=== PATIENT | female | born 1950 | race Caucasian/White ===

== ENCOUNTER 2018-05-09 11:22 | Inpatient (IN) | payer MEDICARE, BC ==
[~2018-05-09] VITALS: Ht 152.4 cm; Wt 113.9 kg
[~2018-05-09 11:22] MED LIST: ALBU8.5H6 IH; ALPR0.25 PO; ASPI-482 PO; BENZ-8 PO; FLUD0.1T PO; GABA-585 PO; GLYB2.5T2 PO; HYDR-2769 PO; HYDR1TAB13 PO; LEVO500T59 PO; LISI-338 PO; NITR0.4T22 SL; NYST15CR TP; OMEP20CA5 PO; POTA10TA31 PO; PROM25TA10 PO; SIMV40TA PO; TRAZ150T49 PO; blood pressure med
--- NOTE | 2018-05-09 12:06 | EKG ---
[facility] [address] [place] [address] Test Date: 2018-05-09 Test Time: 12:02:34 Pat Name: ASHLEY REYES Department: Room: Gender: F [employer]ing [employer]ner: : [id number] Requested By: LONNIE TOBIN Order Number: [id number] Reading MD: Steve Robb MD Measurements Intervals [place] Rate: 70 P: 70 [place]: 142 QRS: 1 QRSD: 80 T: 36 QT: 394 QTc: 428 Interpretive Statements SINUS RHYTHM Electronically Signed On 05-18-2018 9:28:10 CDT by Steve Robb MD
[2018-05-09 12:15] LABS: BASO % 1 % (0-3); EOS # 0.1 x10^3/uL (0.0-0.7); EOS % 1 % (0-3); HEMATOCRIT 47.3 % (36.0-47.0); HEMOGLOBIN 15.6 g/dL (12.0-15.5); LYMPH # 1.9 x10^3/uL (1.0-4.8); LYMPH % 23 % (24-48); MEAN CORPUSCULAR HEMOGLOBIN 28 pg (25-35); MEAN CORPUSCULAR HGB CONC 33 g/dL (31-37); MEAN CORPUSCULAR VOLUME 86 fL (79-100); MONO # 0.7 x10^3/uL (0.0-1.1); MONO % 8 % (0-9); NEUT # 5.3 x10^3uL (1.8-7.7); NEUT % 67 % (31-73); PLATELET COUNT 228 x10^3/uL (140-400); RED BLOOD COUNT 5.49 x10^6/uL (3.50-5.40); RED CELL DISTRIBUTION WIDTH 14.1 % (11.5-14.5)
[2018-05-09] MEDS ORDERED: methylPREDNISolone SOD SUCC PF 125 MG/2 ML VIAL. IV ONE (12:15)
[2018-05-09] MEDS ORDERED: IPRATRPIUM/ALBUTEROL 0.5/2.5MG 3 ML NEBU. NEB ONE (12:15)
[2018-05-09] MEDS ORDERED: NICOTINE 21MG PATCH. TD STA (12:21)
[2018-05-09 12:28] LABS: CREATININE 0.9 mg/dL (0.6-1.0); GFR 62.5; POTASSIUM 3.9 mmol/L (3.5-5.1)
[2018-05-09 12:30] LABS: INFLUENZA A PATIENT NEGATIVE (NEGATIVE); INFLUENZA B PATIENT NEGATIVE (NEGATIVE)
[2018-05-09] MEDS ORDERED: ALPRAZolam 0.5 MG TABLET PO ONE (12:30)
[2018-05-09] MEDS ORDERED: fentaNYL PF VIAL 100 MCG/2 ML VIAL IV ONE ×2 (12:30→14:30)
--- NOTE | 2018-05-09 12:32 | RAD ---
Single view chest dated 05/09/2018: Comparison made to 07/08/2015. Clinical Indication: Shortness of breath and chest pain for 2 weeks. Findings: Single upright portable exam of the chest was performed. Heart size and mediastinal contours are within normal limits given technique. The lungs are clear without evidence of focal consolidation. Vascular interstitium is within normal limits. Impression:: Negative portable chest. Electronically signed by: Vicente Ling MD (05/09/2018 12:29 PM) [id number]
[2018-05-09 12:34] LABS: ALBUMIN 3.2 g/dL (3.4-5.0); ALBUMIN/GLOBULIN RATIO 0.8 (1.0-1.7); MAGNESIUM 1.8 mg/dL (1.8-2.4); TOTAL BILIRUBIN 0.3 mg/dL (0.2-1.0); TOTAL PROTEIN 7.3 g/dL (6.4-8.2)
[2018-05-09 14:00] LABS: BILIRUBIN,URINE NEGATIVE (NEG); CLARITY,URINE CLEAR; COLOR,URINE YELLOW; NITRITE,URINE NEGATIVE (NEG); PH,URINE 6.5; PROTEIN,URINE NEGATIVE (NEG-TRACE)
[2018-05-09 14:10] LABS: BACTERIA,URINE MODERATE /HPF (0-FEW); RBC,URINE OCC /HPF (0-2); SQUAMOUS EPITHELIAL CELL,UR MANY /LPF; WBC,URINE RARE /HPF (0-4)
[2018-05-09 14:23] LABS: BARBITURATES NEG (NEG); BENZODIAZEPINES POS (NEG); CANNABINOIDS NEG (NEG); COCAINE NEG (NEG); METHADONE NEG (NEG); OPIATES NEG (NEG); PHENCYCLIDINE NEG (NEG)
[2018-05-09 14:34] LABS: AMPHETAMINE/METHAMPHETAMINE NEG (NEG)
--- NOTE | 2018-05-09 14:44 | RAD ---
EXAM: Head CT without contrast. HISTORY: Syncope. Dizziness. TECHNIQUE: Computed tomographic images of the head were obtained without contrast. *One or more of the following individualized dose reduction techniques were utilized for this examination: 1. Automated exposure control. 2. Adjustment of the mA and/or kV according to patient size. 3. Use of iterative reconstruction technique. COMPARISON: 04/26/2013. FINDINGS: There is no acute or subacute extra-axial or intraparenchymal hemorrhage. There is no mass effect or midline shift. There is no hydrocephalus. There are areas of decreased attenuation within the cerebral white matter, nonspecific and likely related to chronic small vessel disease. The visualized portions of the orbits, paranasal sinuses and mastoid air cells are unremarkable. No suspicious calvarial lesion is seen. IMPRESSION: No acute intracranial findings. Note is made that MRI is more sensitive for acute infarction. Electronically signed by: Cata Laguna MD (05/09/2018 2:42 PM) [facility]
--- NOTE | 2018-05-09 15:21 | PHYS DOC ---
Past Medical History Past Medical History: Anxiety, Asthma, Cancer, CHF, COPD, Hypertension, Pancreatitis Additional Past Medical Histor: CHRONIC BACK PAIN Past Surgical History: Appendectomy, Cancer Surgery, Cholecystectomy, Hysterectomy Additional Past Surgical Histo: lumpectomy right side, LEG AND ARM Additional Information: 1 PPD Alcohol Use: None Drug Use: None Adult General Chief Complaint Chief Complaint: HYPERTENSION HPI HPI Patient is a 68 year old female with history of hypertension, COPD, currently a nonsmoker, CHF, anxiety, who presents to the ED stating her PCP Dr. Kapoor from [facility] tender to be admitted. Patient states she's had shortness of breath and coughing for "a while". She also states she's had multiple syncope episodes for "a while". Patient states she went to be seen by the PCP, she stated this send her to the ED to be evaluated and admitted. Patient denies any fever. Denies any chest pain. She states she uses oxygen at home 2 L. Review of Systems Review of Systems Constitutional: Denies fever or chills [] Eyes: Denies change in visual acuity, redness, or eye pain [] HENT: Denies nasal congestion or sore throat [] Respiratory: Reports cough and shortness of breath Cardiovascular: No additional information not addressed in HPI [] GI: Denies abdominal pain, nausea, vomiting, bloody stools or diarrhea [] : Denies dysuria or hematuria [] Musculoskeletal: Denies back pain or joint pain [] Integument: Denies rash or skin lesions [] Neurologic: Reports syncope episodes. Denies headache, focal weakness or sensory changes [] All other systems were reviewed and found to be within normal limits, except as documented in this note. Current Medications Current Medications Current Medications Medications (Trade) Dose Ordered Sig/[facility] Start Time Stop Time Status Last Admin Dose Admin Albuterol/ Ipratropium (Duoneb) 3 ml 1X ONCE 05/09/18 12:15 05/09/18 12:16 DC 05/09/18 12:14 3 ML Alprazolam (Xanax) 0.5 mg 1X ONCE 05/09/18 12:30 05/09/18 12:31 DC 05/09/18 12:49 0.5 MG Fentanyl Citrate (Fentanyl 2ml Vial) 50 mcg 1X ONCE 05/09/18 14:30 05/09/18 14:33 DC 05/09/18 14:40 50 MCG Methylprednisolone Sodium Succinate (SOLU-Medrol 125MG VIAL) 125 mg 1X ONCE 05/09/18 12:15 05/09/18 12:16 DC 05/09/18 12:16 125 MG Nicotine (Nicoderm Cq 21mg) 1 patch 1X STAT 05/09/18 12:21 05/09/18 12:24 DC 05/09/18 12:50 1 PATCH Allergies Allergies Allergies Coded Allergies Type Severity Reaction Last Updated Verified codeine Allergy Intermediate hives 07/10/15 Yes Physical Exam Physical Exam Constitutional: Well developed, well nourished, no acute distress, non-toxic appearance. [] HENT: Normocephalic, atraumatic, bilateral external ears normal, oropharynx moist, no oral exudates, nose normal. [] Eyes: PERRLA, EOMI, conjunctiva normal, no discharge. [] Neck: Normal range of motion, no tenderness, supple, no stridor. [] Cardiovascular:Heart rate regular rhythm, no murmur [] Lungs & Thorax: Wheezing throughout her lung bases, patient appears short of air. Abdomen: Bowel sounds normal, soft, no tenderness, no masses, no pulsatile masses. [] Skin: Warm, dry, no erythema, no rash. [] Back: No tenderness, no CVA tenderness. [] Extremities: No tenderness, no cyanosis, no clubbing, ROM intact, no edema. [] Neurologic: Alert and oriented X 3, normal motor function, normal sensory function, no focal deficits noted. Cranial nerves II through XII intact Psychologic: Affect normal, judgement normal, mood normal. [] Current Patient Data Vital Signs Vital Signs Date Time Temp Pulse Resp B/P (MAP) Pulse Ox O2 Delivery O2 Flow Rate FiO2 05/09/18 14:40 24 05/09/18 14:34 78 05/09/18 13:11 95 05/09/18 12:16 Nasal Cannula 2.0 05/09/18 12:07 98.2 148/72 (97) 98.2 Lab Values Laboratory Tests Test 05/09/18 11:56 05/09/18 13:36 White Blood Count 8.0 x10^3/uL (4.0-11.0) Red Blood Count 5.49 x10^6/uL (3.50-5.40) H Hemoglobin 15.6 g/dL (12.0-15.5) H Hematocrit 47.3 % (36.0-47.0) H Mean Corpuscular Volume 86 fL (79-100) Mean Corpuscular Hemoglobin 28 pg (25-35) Mean Corpuscular Hemoglobin Concent 33 g/dL (31-37) Red Cell Distribution Width 14.1 % (11.5-14.5) Platelet Count 228 x10^3/uL (140-400) Neutrophils (%) (Auto) 67 % (31-73) Lymphocytes (%) (Auto) 23 % (24-48) L Monocytes (%) (Auto) 8 % (0-9) Eosinophils (%) (Auto) 1 % (0-3) Basophils (%) (Auto) 1 % (0-3) Neutrophils # (Auto) 5.3 x10^3uL (1.8-7.7) Lymphocytes # (Auto) 1.9 x10^3/uL (1.0-4.8) Monocytes # (Auto) 0.7 x10^3/uL (0.0-1.1) Eosinophils # (Auto) 0.1 x10^3/uL (0.0-0.7) Basophils # (Auto) 0.0 x10^3/uL (0.0-0.2) Prothrombin Time 12.0 SEC (11.7-14.0) Prothrombin Time INR 0.9 (0.8-1.1) Sodium Level 139 mmol/L (136-145) Potassium Level 3.9 mmol/L (3.5-5.1) Chloride Level 99 mmol/L (98-107) Carbon Dioxide Level 35 mmol/L (21-32) H Anion Gap 5 (6-14) L Blood Urea Nitrogen 6 mg/dL (7-20) L Creatinine 0.9 mg/dL (0.6-1.0) Estimated GFR (Cockcroft-Gault) 62.5 BUN/Creatinine Ratio 7 (6-20) Glucose Level 105 mg/dL (70-99) H Calcium Level 9.0 mg/dL (8.5-10.1) Magnesium Level 1.8 mg/dL (1.8-2.4) Total Bilirubin 0.3 mg/dL (0.2-1.0) Aspartate Amino Transferase (AST) 23 U/L (15-37) Alanine Aminotransferase (ALT) 19 U/L (14-59) Alkaline Phosphatase 89 U/L (46-116) Creatine Kinase 282 U/L (26-192) H Creatine Kinase MB (Mass) 8.1 ng/mL (0.0-3.6) H Creatine Kinase MB Relative Index 2.9 % (0-4) Troponin I Quantitative < 0.017 ng/mL (0.000-0.055) KA-Rku-U-Type Natriuretic Peptide 140 pg/mL (0-124) H Total Protein 7.3 g/dL (6.4-8.2) Albumin 3.2 g/dL (3.4-5.0) L Albumin/Globulin Ratio 0.8 (1.0-1.7) L Thyroid Stimulating Hormone (TSH) 2.305 uIU/mL (0.358-3.74) Influenza Type A Antigen Negative (NEGATIVE) Influenza Type B Antigen Negative (NEGATIVE) Urine Collection Type Void Urine Color Yellow Urine Clarity Clear Urine pH 6.5 Urine Specific [place] 1.015 Urine Protein Negative mg/dL (NEG-TRACE) Urine Glucose (UA) Negative mg/dL (NEG) Urine Ketones (Stick) Negative mg/dL (NEG) Urine Blood Negative (NEG) Urine Nitrite Negative (NEG) Urine Bilirubin Negative (NEG) Urine Urobilinogen Dipstick 1.0 mg/dL (0.2 mg/dL) Urine Leukocyte Esterase Trace (NEG) Urine RBC Occ /HPF (0-2) Urine WBC Rare /HPF (0-4) Urine Squamous Epithelial Cells Many /LPF Urine Bacteria Moderate /HPF (0-FEW) Urine Opiates Screen Neg (NEG) Urine Methadone Screen Neg (NEG) Urine Barbiturates Neg (NEG) Urine Phencyclidine Screen Neg (NEG) Urine Amphetamine/Methamphetamine Neg (NEG) Urine Benzodiazepines Screen Pos (NEG) Urine Cocaine Screen Neg (NEG) Urine Cannabinoids Screen Neg (NEG) Urine Ethyl Alcohol Neg (NEG) Laboratory Tests 05/09/18 11:56 Laboratory Tests 05/09/18 11:56 EKG EKG 12:02pm interpreted by Dr. Amador sinus rhythm HR 70 no STEMI[] Radiology/Procedures Radiology/Procedures [] Course & Med Decision Making Course & Med Decision Making Pertinent Labs and Imaging studies reviewed. (See chart for details) This is a 68-year-old female patient presented to the ED today complaining of cough and shortness of breath for a while. Also complaining of multiple syncope episodes. Patient was sent to the ED to be admitted. Labs are negative for any acute findings, chest xray is negative, negative for influenza A and B, she was given a DuoNeb treatment in the ED and solumedrol. She is feeling slightly better but she states she is not back to her baseline, Ct of the head is negative. Consulted with Dr. Haque who accepted patient for admission. Dragon Disclaimer Dragon Disclaimer This electronic medical record was generated, in whole or in part, using a voice recognition dictation system. Departure Departure Impression: Primary Impression: COPD exacerbation Additional Impression: Syncope Referrals: IVETH KAPOOR (PCP) Problem Qualifiers Additional Impression: Syncope Syncope type: unspecified Qualified Codes: R55 - Syncope and collapse LONNIE TOBIN APRN May 09, 2018 15:21
[2018-05-09] MEDS ORDERED: ONDANSETRON PF 4 MG/2 ML VIAL. IV PRN (15:30)
[2018-05-09] MEDS ORDERED: fentaNYL PF VIAL 100 MCG/2 ML VIAL IV PRN (15:30)
[2018-05-09] MEDS: IPRATRPIUM/ALBUTEROL 0.5/2.5MG 3 ML NEBU. NEB SCH ×2 (16:00→19:21)
[2018-05-09 16:30] VITALS: BP 170/63
[2018-05-09 19:00] VITALS: BP 172/65
--- NOTE | 2018-05-09 20:33 | PDOC1 ---
History and Physical Date of Admission Date of Admission DATE: 05/09/18 TIME: 20:33 Identification/Chief Complaint Chief Complaint seen in er , history of hypertension, COPD, currently a nonsmoker, CHF, anxiety, who presents to the ED stating her PCP Dr. Kapoor from [facility] told her to be admitted. Patient states she's had shortness of breath and coughing for "a while". She also states she's had multiple syncope episodes for "a while "./falls Patient states she went to be seen by the PCP, she stated this send her to the ED to be evaluated and admitted. has hx hypercapnea/ obesity/ hypoxic resp failure was in moderate distress in ER TONIGHT Past Medical History Past Medical History Past Medical History Past Medical History Past Medical History: Anxiety, Asthma, Cancer, CHF, COPD, Hypertension, Pancreatitis Additional Past Medical Histor: CHRONIC BACK PAIN Past Surgical History: Appendectomy, Cancer Surgery, Cholecystectomy, Hysterectomy Additional Past Surgical Histo: lumpectomy right side, LEG AND ARM Additional Information: 1 PPD Alcohol Use: None Drug Use: None Past Medical History Cardiovascular: HTN Pulmonary: Bronchitis, COPD Psych: No pertinent hx, Anxiety Musculoskeletal: low back pain Past Surgical History Past Surgical History: Appendectomy, Cholecystectomy, , Hysterectomy Family History Family History: Diabetes, Hypertension Social History Smoke: 2 packs per day ALCOHOL: none Cardiovascular: HTN Pulmonary: Bronchitis, COPD Psych: No pertinent hx, Anxiety Musculoskeletal: low back pain Past Surgical History Past Surgical History: Appendectomy, Cholecystectomy, , Hysterectomy Family History Family History: Chronic Bronchitis, Diabetes, Hypertension Social History Smoke: <1 pack per day ALCOHOL: none Drugs: None Current Problem List Problem List Problems Medical Problems: (1) COPD exacerbation Status: Acute (2) Syncope Status: Acute Current Medications Current Medications Current Medications Albuterol/ Ipratropium (Duoneb) 3 ml 1X ONCE NEB Last administered on at 12:14; Start 05/09/18 at 12:15; Stop 05/09/18 at 12:16; Status DC Methylprednisolone Sodium Succinate (SOLU-Medrol 125MG VIAL) 125 mg 1X ONCE IV Last administered on 05/09/18at 12:16; Start 05/09/18 at 12:15; Stop 05/09/18 at 12:16; Status DC Fentanyl Citrate (Fentanyl 2ml Vial) 50 mcg 1X ONCE IV Last administered on 02/15at 12:48; Start 05/09/18 at 12:30; Stop 05/09/18 at 12:31; Status DC Alprazolam (Xanax) 0.5 mg 1X ONCE PO Last administered on 05/09/18at 12:49; Start 05/09/18 at 12:30; Stop 05/09/18 at 12:31; Status DC Nicotine (Nicoderm Cq 21mg) 1 patch 1X STAT TD Last administered on 05/09/18at 12:50; Start 05/09/18 at 12:21; Stop 05/09/18 at 12:24; Status DC Fentanyl Citrate (Fentanyl 2ml Vial) 50 mcg 1X ONCE IV Last administered on 02/15at 14:40; Start 05/09/18 at 14:30; Stop 05/09/18 at 14:33; Status DC Ondansetron HCl (Zofran) 4 mg PRN Q8HRS PRN IV NAUSEA/VOMITING; Start 05/09/18 at 15:30; Stop 05/10/18 at 15:29 Fentanyl Citrate (Fentanyl 2ml Vial) 50 mcg PRN Q1HR PRN IV PAIN; Start at 15:30; Stop 05/10/18 at 15:29 Albuterol/ Ipratropium (Duoneb) 3 ml RTQID NEB Last administered on 05/09/18at 19:21; Start 05/09/18 at 16:00; Stop 05/10/18 at 15:59 Methylprednisolone Sodium Succinate (SOLU-Medrol 40MG VIAL) 40 mg Q8HRS IV ; Start 05/09/18 at 22:00 Active Scripts Active Levaquin (Levofloxacin) 500 Mg Tablet 500 Mg PO DAILY06 Fludrocortisone Acetate 0.1 Mg Tablet 0.1 Mg PO DAILY Benzonatate 100 Mg Capsule 100 Mg PO [id number] Hydrocodone-Apap 10-325 (Hydrocodone Bit/Acetaminophen) 1 Each Tablet 1 Tab PO PRN Q6HRS PRN Reported NITROGLYCERIN SubLingual (Nitroglycerin) 0.4 Mg Tab.subl 0.4 Mg SL PRN Q5MIN PRN Promethazine Hcl 25 Mg Tablet 1 Tab PO PRN Q6HRS Nystatin 15 Gm Cream..g. 1 Deo TP BID PRN Aspir 81 (Aspirin) 81 Mg Tablet.dr 1 Tab PO DAILY Lisinopril 5 Mg Tablet 1 Tab PO DAILY Zocor (Simvastatin) 40 Mg Tablet 40 Mg PO HS Prilosec (Omeprazole) 20 Mg Capsule.dr 20 Mg PO DAILY Glyburide 2.5 Mg Tablet 2.5 Mg PO DAILY Trazodone Hcl 150 Mg Tablet 150 Mg PO QHS Albuterol Sulfate Hfa Inhaler (Albuterol Sulfate) 8.5 Gm Hfa.aer.ad 8.5 Gm IH BID Potassium Chloride 10 Meq Tab.er.prt 10 Meq PO Xanax (Alprazolam) 0.25 Mg Tablet 1 Mg PO QID Allergies Allergies: Coded Allergies: codeine (Verified Allergy, Intermediate, hives, 07/10/15) ROS Review of System Review of Systems Review of Systems Constitutional: Denies fever or chills [] Eyes: Denies change in visual acuity, redness, or eye pain [] HENT: Denies nasal congestion or sore throat [] Respiratory: Reports cough and MODERATE shortness of breath Cardiovascular: No additional information not addressed in HPI [] GI: Denies abdominal pain, nausea, vomiting, bloody stools or diarrhea [] : Denies dysuria or hematuria [] Musculoskeletal: Denies back pain or joint pain [] Integument: Denies rash or skin lesions [] Neurologic: Reports syncope episodes. Denies headache, focal weakness or sensory changes [] 14 PT systems were reviewed and found to be within normal limits, except as documented Vitals Vitals Vital Signs Date Time Temp Pulse Resp B/P (MAP) Pulse Ox O2 Delivery O2 Flow Rate FiO2 05/09/18 19:23 96 Nasal Cannula 2.0 05/09/18 19:00 97.9 84 20 172/65 (100) 97.9 Labs Labs Laboratory Tests Test 05/09/18 11:56 05/09/18 13:36 White Blood Count 8.0 x10^3/uL (4.0-11.0) Red Blood Count 5.49 x10^6/uL (3.50-5.40) Hemoglobin 15.6 g/dL (12.0-15.5) Hematocrit 47.3 % (36.0-47.0) Mean Corpuscular Volume 86 fL (79-100) Mean Corpuscular Hemoglobin 28 pg (25-35) Mean Corpuscular Hemoglobin Concent 33 g/dL (31-37) Red Cell Distribution Width 14.1 % (11.5-14.5) Platelet Count 228 x10^3/uL (140-400) Neutrophils (%) (Auto) 67 % (31-73) Lymphocytes (%) (Auto) 23 % (24-48) Monocytes (%) (Auto) 8 % (0-9) Eosinophils (%) (Auto) 1 % (0-3) Basophils (%) (Auto) 1 % (0-3) Neutrophils # (Auto) 5.3 x10^3uL (1.8-7.7) Lymphocytes # (Auto) 1.9 x10^3/uL (1.0-4.8) Monocytes # (Auto) 0.7 x10^3/uL (0.0-1.1) Eosinophils # (Auto) 0.1 x10^3/uL (0.0-0.7) Basophils # (Auto) 0.0 x10^3/uL (0.0-0.2) Prothrombin Time 12.0 SEC (11.7-14.0) Prothromb Time International Ratio 0.9 (0.8-1.1) Sodium Level 139 mmol/L (136-145) Potassium Level 3.9 mmol/L (3.5-5.1) Chloride Level 99 mmol/L (98-107) Carbon Dioxide Level 35 mmol/L (21-32) Anion Gap 5 (6-14) Blood Urea Nitrogen 6 mg/dL (7-20) Creatinine 0.9 mg/dL (0.6-1.0) Estimated GFR (Cockcroft-Gault) 62.5 BUN/Creatinine Ratio 7 (6-20) Glucose Level 105 mg/dL (70-99) Calcium Level 9.0 mg/dL (8.5-10.1) Magnesium Level 1.8 mg/dL (1.8-2.4) Total Bilirubin 0.3 mg/dL (0.2-1.0) Aspartate Amino Transf (AST/SGOT) 23 U/L (15-37) Alanine Aminotransferase (ALT/SGPT) 19 U/L (14-59) Alkaline Phosphatase 89 U/L (46-116) Creatine Kinase 282 U/L (26-192) Creatine Kinase MB (Mass) 8.1 ng/mL (0.0-3.6) Creatine Kinase MB Relative Index 2.9 % (0-4) Troponin I Quantitative < 0.017 ng/mL (0.000-0.055) AD-Tlu-C-Type Natriuretic Peptide 140 pg/mL (0-124) Total Protein 7.3 g/dL (6.4-8.2) Albumin 3.2 g/dL (3.4-5.0) Albumin/Globulin Ratio 0.8 (1.0-1.7) Thyroid Stimulating Hormone (TSH) 2.305 uIU/mL (0.358-3.74) Influenza Type A Antigen Negative (NEGATIVE) Influenza Type B Antigen Negative (NEGATIVE) Urine Collection Type Void Urine Color Yellow Urine Clarity Clear Urine pH 6.5 Urine Specific [place] 1.015 Urine Protein Negative mg/dL (NEG-TRACE) Urine Glucose (UA) Negative mg/dL (NEG) Urine Ketones (Stick) Negative mg/dL (NEG) Urine Blood Negative (NEG) Urine Nitrite Negative (NEG) Urine Bilirubin Negative (NEG) Urine Urobilinogen Dipstick 1.0 mg/dL (0.2 mg/dL) Urine Leukocyte Esterase Trace (NEG) Urine RBC Occ /HPF (0-2) Urine WBC Rare /HPF (0-4) Urine Squamous Epithelial Cells Many /LPF Urine Bacteria Moderate /HPF (0-FEW) Urine Opiates Screen Neg (NEG) Urine Methadone Screen Neg (NEG) Urine Barbiturates Neg (NEG) Urine Phencyclidine Screen Neg (NEG) Urine Amphetamine/Methamphetamine Neg (NEG) Urine Benzodiazepines Screen Pos (NEG) Urine Cocaine Screen Neg (NEG) Urine Cannabinoids Screen Neg (NEG) Urine Ethyl Alcohol Neg (NEG) Laboratory Tests Test 05/09/18 11:56 05/09/18 13:36 White Blood Count 8.0 x10^3/uL (4.0-11.0) Red Blood Count 5.49 x10^6/uL (3.50-5.40) Hemoglobin 15.6 g/dL (12.0-15.5) Hematocrit 47.3 % (36.0-47.0) Mean Corpuscular Volume 86 fL (79-100) Mean Corpuscular Hemoglobin 28 pg (25-35) Mean Corpuscular Hemoglobin Concent 33 g/dL (31-37) Red Cell Distribution Width 14.1 % (11.5-14.5) Platelet Count 228 x10^3/uL (140-400) Neutrophils (%) (Auto) 67 % (31-73) Lymphocytes (%) (Auto) 23 % (24-48) Monocytes (%) (Auto) 8 % (0-9) Eosinophils (%) (Auto) 1 % (0-3) Basophils (%) (Auto) 1 % (0-3) Neutrophils # (Auto) 5.3 x10^3uL (1.8-7.7) Lymphocytes # (Auto) 1.9 x10^3/uL (1.0-4.8) Monocytes # (Auto) 0.7 x10^3/uL (0.0-1.1) Eosinophils # (Auto) 0.1 x10^3/uL (0.0-0.7) Basophils # (Auto) 0.0 x10^3/uL (0.0-0.2) Prothrombin Time 12.0 SEC (11.7-14.0) Prothromb Time International Ratio 0.9 (0.8-1.1) Sodium Level 139 mmol/L (136-145) Potassium Level 3.9 mmol/L (3.5-5.1) Chloride Level 99 mmol/L (98-107) Carbon Dioxide Level 35 mmol/L (21-32) Anion Gap 5 (6-14) Blood Urea Nitrogen 6 mg/dL (7-20) Creatinine 0.9 mg/dL (0.6-1.0) Estimated GFR (Cockcroft-Gault) 62.5 BUN/Creatinine Ratio 7 (6-20) Glucose Level 105 mg/dL (70-99) Calcium Level 9.0 mg/dL (8.5-10.1) Magnesium Level 1.8 mg/dL (1.8-2.4) Total Bilirubin 0.3 mg/dL (0.2-1.0) Aspartate Amino Transf (AST/SGOT) 23 U/L (15-37) Alanine Aminotransferase (ALT/SGPT) 19 U/L (14-59) Alkaline Phosphatase 89 U/L (46-116) Creatine Kinase 282 U/L (26-192) Creatine Kinase MB (Mass) 8.1 ng/mL (0.0-3.6) Creatine Kinase MB Relative Index 2.9 % (0-4) Troponin I Quantitative < 0.017 ng/mL (0.000-0.055) EP-Try-K-Type Natriuretic Peptide 140 pg/mL (0-124) Total Protein 7.3 g/dL (6.4-8.2) Albumin 3.2 g/dL (3.4-5.0) Albumin/Globulin Ratio 0.8 (1.0-1.7) Thyroid Stimulating Hormone (TSH) 2.305 uIU/mL (0.358-3.74) Influenza Type A Antigen Negative (NEGATIVE) Influenza Type B Antigen Negative (NEGATIVE) Urine Collection Type Void Urine Color Yellow Urine Clarity Clear Urine pH 6.5 Urine Specific [place] 1.015 Urine Protein Negative mg/dL (NEG-TRACE) Urine Glucose (UA) Negative mg/dL (NEG) Urine Ketones (Stick) Negative mg/dL (NEG) Urine Blood Negative (NEG) Urine Nitrite Negative (NEG) Urine Bilirubin Negative (NEG) Urine Urobilinogen Dipstick 1.0 mg/dL (0.2 mg/dL) Urine Leukocyte Esterase Trace (NEG) Urine RBC Occ /HPF (0-2) Urine WBC Rare /HPF (0-4) Urine Squamous Epithelial Cells Many /LPF Urine Bacteria Moderate /HPF (0-FEW) Urine Opiates Screen Neg (NEG) Urine Methadone Screen Neg (NEG) Urine Barbiturates Neg (NEG) Urine Phencyclidine Screen Neg (NEG) Urine Amphetamine/Methamphetamine Neg (NEG) Urine Benzodiazepines Screen Pos (NEG) Urine Cocaine Screen Neg (NEG) Urine Cannabinoids Screen Neg (NEG) Urine Ethyl Alcohol Neg (NEG) Images Images HISTORY: Syncope. Dizziness. TECHNIQUE: Computed tomographic images of the head were obtained without contrast. *One or more of the following individualized dose reduction techniques were utilized for this examination: 1. Automated exposure control. 2. Adjustment of the mA and/or kV according to patient size. 3. Use of iterative reconstruction technique. COMPARISON: 04/26/2013. FINDINGS: There is no acute or subacute extra-axial or intraparenchymal hemorrhage. There is no mass effect or midline shift. There is no hydrocephalus. There are areas of decreased attenuation within the cerebral white matter, nonspecific and likely related to chronic small vessel disease. The visualized portions of the orbits, paranasal sinuses and mastoid air cells are unremarkable. No suspicious calvarial lesion is seen. IMPRESSION: No acute intracranial findings. Note is made that MRI is more sensitive for acute infarction. Electronically signed by: Chaparro Laguna MD (05/09/2018 2:42 PM) [id number] DICTATED and SIGNED BY: CHAPARRO LAGUNA MD DATE: 05/09/18 1442 VTE Prophylaxis Ordered VTE Prophylaxis Devices: Yes VTE Pharmacological Prophylaxi: Yes Assessment/Plan Assessment/Plan IMPRESSION acute hypoxic and hypercapnic resp failure with bronchitis sepsis with bronchitis COPD exacerbation ACUTE MODERATE obesity, BMI 39.6 tobaccoism, CONTINUOUS FALLS, RECURRENT Anxiety, Asthma, Cancer, HX CHF, , Hypertension, Pancreatitis CHRONIC BACK PAIN PLAN ADMIT 2 MN PULM CONSULT IV ANTIBIOTICS, EMPERIC O2 SUPPORT DVT PROPHYLAXIS ABG NOW EDUCATED ON NEED FOR SMOKING CESSATION IV STEROID TAPER HARRIS CORDOAV MD May 09, 2018 20:33
[2018-05-09] MEDS ORDERED: NITROGLYCERIN SUBLINGUAL 0.4 MG BOTTLE OF 25. SL PRN (20:45)
[2018-05-09] MEDS ORDERED: PROMETHAZINE 12.5 MG TABLET. PO PRN (21:00)
[2018-05-09] MEDS ORDERED: NYSTATIN 100,000 UNIT/GM TOPICAL CREAM 15GM TUBE. TP PRN (21:00)
[2018-05-09 21:12] LABS: BASE EXCESS ABG 4 mmol/L (-3-3); HCO3 ABG 30 mmol/L (21-28); PCO2 ABG 49 mmHg (35-46); PO2 ABG 69 mmHg (65-108); SAT O2 ABG 93 % (92-99)
[2018-05-09] MEDS ORDERED: ALPRAZolam 0.25 MG TABLET PO SCH (21:15)
[2018-05-09] MEDS: SIMVASTATIN 40 MG TABLET. PO SCH (21:15)
[2018-05-09] MEDS: BENZONATATE 100 MG CAPSULE. PO SCH (21:15)
[2018-05-09] MEDS ORDERED: ALPRAZolam 1 MG TABLET PO SCH (21:15)
[2018-05-09] MEDS: methylPREDNISolone SOD SUCC PF 40 MG/ML VIAL. IV SCH (21:16)
[2018-05-09] MEDS: DOXYCYCLINE HYCLATE 100 MG in IV DEXTROSE 5% 100ML 100 ML IV SCH (21:16)
[2018-05-09] MEDS: ENOXAPARIN 40 MG/0.4 ML SYRINGE. SQ SCH (21:16)
[2018-05-09] MEDS: fentaNYL PF VIAL 100 MCG/2 ML VIAL IV PRN ×2 (21:20→23:43)
[2018-05-09 21:24] LABS: FIO2 ABG 28
[2018-05-09 23:00] VITALS: BP 174/63
[2018-05-10] MEDS: PIPERACILLIN/TAZOBACTAM 3.375 GM in IV NORMAL SALINE 50ML 50 ML IV SCH ×5 (00:26→23:38)
[2018-05-10] MEDS: HYDROcodone/APAP 10/325 1 TAB TABLET PO PRN ×4 (01:26→23:37)
[2018-05-10 03:00] VITALS: BP 160/80
[2018-05-10] MEDS: fentaNYL PF VIAL 100 MCG/2 ML VIAL IV PRN (03:44)
[2018-05-10] MEDS: methylPREDNISolone SOD SUCC PF 40 MG/ML VIAL. IV SCH ×3 (06:16→20:55)
[2018-05-10 07:00] VITALS: BP 155/61
[2018-05-10] MEDS: PANTOPRAZOLE 40 MG TABLET.DR. PO SCH (08:11)
[2018-05-10] MEDS: POTASSIUM CHLORIDE 10 MEQ TABLET.ER. PO SCH (08:11)
[2018-05-10] MEDS: ASPIRIN ENTERIC COATED 81 MG TABLET.DR. PO SCH (08:11)
[2018-05-10] MEDS: FLUDROCORTISONE 0.1 MG TABLET PO SCH (08:12)
[2018-05-10] MEDS: LISINOPRIL 5 MG TABLET. PO SCH (08:12)
[2018-05-10] MEDS: DOXYCYCLINE HYCLATE 100 MG in IV DEXTROSE 5% 100ML 100 ML IV SCH ×2 (08:12→20:54)
[2018-05-10] MEDS: BENZONATATE 100 MG CAPSULE. PO SCH ×3 (08:12→20:55)
[2018-05-10 08:15] LABS: BASO % 0 % (0-3); EOS % 0 % (0-3); HEMATOCRIT 47.6 % (36.0-47.0); HEMOGLOBIN 15.2 g/dL (12.0-15.5); LYMPH # 1.1 x10^3/uL (1.0-4.8); LYMPH % 10 % (24-48); MEAN CORPUSCULAR HEMOGLOBIN 28 pg (25-35); MEAN CORPUSCULAR HGB CONC 32 g/dL (31-37); MEAN CORPUSCULAR VOLUME 87 fL (79-100); MONO # 0.3 x10^3/uL (0.0-1.1); MONO % 2 % (0-9); NEUT # 9.6 x10^3uL (1.8-7.7); NEUT % 88 % (31-73); PLATELET COUNT 231 x10^3/uL (140-400); RED BLOOD COUNT 5.47 x10^6/uL (3.50-5.40); RED CELL DISTRIBUTION WIDTH 14.2 % (11.5-14.5); WHITE BLOOD COUNT 10.9 x10^3/uL (4.0-11.0)
[2018-05-10] MEDS: IPRATRPIUM/ALBUTEROL 0.5/2.5MG 3 ML NEBU. NEB SCH ×4 (08:15→20:03)
[2018-05-10 08:36] LABS: CALCIUM 8.7 mg/dL (8.5-10.1); CREATININE 1.3 mg/dL (0.6-1.0); GFR 40.9; POTASSIUM 4.5 mmol/L (3.5-5.1)
[2018-05-10] MEDS ORDERED: ALPRAZolam 1 MG TABLET PO ONE (09:00)
[2018-05-10] MEDS: NICOTINE 21MG PATCH. TD SCH (09:05)
[2018-05-10] MEDS: glyBURIDE 1.25 MG TABLET PO SCH (09:05)
--- NOTE | 2018-05-10 09:06 | NUR ---
SW following for discharge planning. Discussed with RN, pt is from home with and gets around fine. RN advised no SW needs at this time. SW will continue to follow.
--- NOTE | 2018-05-10 09:57 | PDOC ---
PROGRESS NOTES Chief Complaint Chief Complaint acute hypoxic and hypercapnic resp failure with bronchitis sepsis with bronchitis COPD exacerbation A obesity, BMI 39.6 tobaccoism, weakness and falls Anxiety, D/o NOS Asthma, Hx HX CHF, , chronic diastolic Hypertension, chronic back pain PULM CONSULT IV ANTIBIOTICS, EMPERIC O2 SUPPORT DVT PROPHYLAXIS ABG NOW EDUCATED ON NEED FOR SMOKING CESSATION IV STEROID TAPER DUONEBS QID History of Present Illness History of Present Illness feels better breathing easier less coughing, some weakness EEG done today, neuro following Pulm consulted, on abx, steroids, will taper to PO as able Vitals Vitals Vital Signs Date Time Temp Pulse Resp B/P (MAP) Pulse Ox O2 Delivery O2 Flow Rate FiO2 05/10/18 09:37 Nasal Cannula 2.0 05/10/18 08:20 93 05/10/18 08:12 77 155/61 05/10/18 07:00 97.9 20 97.9 Physical Exam General: Alert, Cooperative, No acute distress Lungs: Clear Extremities: No clubbing, No edema Skin: No rashes Labs LABS Laboratory Tests Test 05/09/18 11:56 05/09/18 13:36 05/09/18 20:58 05/10/18 07:17 White Blood Count 8.0 x10^3/uL (4.0-11.0) 10.9 x10^3/uL (4.0-11.0) Red Blood Count 5.49 x10^6/uL (3.50-5.40) 5.47 x10^6/uL (3.50-5.40) Hemoglobin 15.6 g/dL (12.0-15.5) 15.2 g/dL (12.0-15.5) Hematocrit 47.3 % (36.0-47.0) 47.6 % (36.0-47.0) Mean Corpuscular Volume 86 fL (79-100) 87 fL (79-100) Mean Corpuscular Hemoglobin 28 pg (25-35) 28 pg (25-35) Mean Corpuscular Hemoglobin Concent 33 g/dL (31-37) 32 g/dL (31-37) Red Cell Distribution Width 14.1 % (11.5-14.5) 14.2 % (11.5-14.5) Platelet Count 228 x10^3/uL (140-400) 231 x10^3/uL (140-400) Neutrophils (%) (Auto) 67 % (31-73) 88 % (31-73) Lymphocytes (%) (Auto) 23 % (24-48) 10 % (24-48) Monocytes (%) (Auto) 8 % (0-9) 2 % (0-9) Eosinophils (%) (Auto) 1 % (0-3) 0 % (0-3) Basophils (%) (Auto) 1 % (0-3) 0 % (0-3) Neutrophils # (Auto) 5.3 x10^3uL (1.8-7.7) 9.6 x10^3uL (1.8-7.7) Lymphocytes # (Auto) 1.9 x10^3/uL (1.0-4.8) 1.1 x10^3/uL (1.0-4.8) Monocytes # (Auto) 0.7 x10^3/uL (0.0-1.1) 0.3 x10^3/uL (0.0-1.1) Eosinophils # (Auto) 0.1 x10^3/uL (0.0-0.7) 0.0 x10^3/uL (0.0-0.7) Basophils # (Auto) 0.0 x10^3/uL (0.0-0.2) 0.0 x10^3/uL (0.0-0.2) Prothrombin Time 12.0 SEC (11.7-14.0) Prothromb Time International Ratio 0.9 (0.8-1.1) Sodium Level 139 mmol/L (136-145) 134 mmol/L (136-145) Potassium Level 3.9 mmol/L (3.5-5.1) 4.5 mmol/L (3.5-5.1) Chloride Level 99 mmol/L (98-107) 95 mmol/L (98-107) Carbon Dioxide Level 35 mmol/L (21-32) 31 mmol/L (21-32) Anion Gap 5 (6-14) 8 (6-14) Blood Urea Nitrogen 6 mg/dL (7-20) 14 mg/dL (7-20) Creatinine 0.9 mg/dL (0.6-1.0) 1.3 mg/dL (0.6-1.0) Estimated GFR (Cockcroft-Gault) 62.5 40.9 BUN/Creatinine Ratio 7 (6-20) Glucose Level 105 mg/dL (70-99) 197 mg/dL (70-99) Calcium Level 9.0 mg/dL (8.5-10.1) 8.7 mg/dL (8.5-10.1) Magnesium Level 1.8 mg/dL (1.8-2.4) Total Bilirubin 0.3 mg/dL (0.2-1.0) Aspartate Amino Transf (AST/SGOT) 23 U/L (15-37) Alanine Aminotransferase (ALT/SGPT) 19 U/L (14-59) Alkaline Phosphatase 89 U/L (46-116) Creatine Kinase 282 U/L (26-192) Creatine Kinase MB (Mass) 8.1 ng/mL (0.0-3.6) Creatine Kinase MB Relative Index 2.9 % (0-4) Troponin I Quantitative < 0.017 ng/mL (0.000-0.055) LE-Ftq-V-Type Natriuretic Peptide 140 pg/mL (0-124) Total Protein 7.3 g/dL (6.4-8.2) Albumin 3.2 g/dL (3.4-5.0) Albumin/Globulin Ratio 0.8 (1.0-1.7) Thyroid Stimulating Hormone (TSH) 2.305 uIU/mL (0.358-3.74) Influenza Type A Antigen Negative (NEGATIVE) Influenza Type B Antigen Negative (NEGATIVE) Urine Collection Type Void Urine Color Yellow Urine Clarity Clear Urine pH 6.5 Urine Specific Harrison 1.015 Urine Protein Negative mg/dL (NEG-TRACE) Urine Glucose (UA) Negative mg/dL (NEG) Urine Ketones (Stick) Negative mg/dL (NEG) Urine Blood Negative (NEG) Urine Nitrite Negative (NEG) Urine Bilirubin Negative (NEG) Urine Urobilinogen Dipstick 1.0 mg/dL (0.2 mg/dL) Urine Leukocyte Esterase Trace (NEG) Urine RBC Occ /HPF (0-2) Urine WBC Rare /HPF (0-4) Urine Squamous Epithelial Cells Many /LPF Urine Bacteria Moderate /HPF (0-FEW) Urine Opiates Screen Neg (NEG) Urine Methadone Screen Neg (NEG) Urine Barbiturates Neg (NEG) Urine Phencyclidine Screen Neg (NEG) Urine Amphetamine/Methamphetamine Neg (NEG) Urine Benzodiazepines Screen Pos (NEG) Urine Cocaine Screen Neg (NEG) Urine Cannabinoids Screen Neg (NEG) Urine Ethyl Alcohol Neg (NEG) O2 Saturation 93 % (92-99) Arterial Blood pH 7.40 (7.35-7.45) Arterial Blood pCO2 at Patient Temp 49 mmHg (35-46) Arterial Blood pO2 at Patient Temp 69 mmHg (65-108) Arterial Blood HCO3 30 mmol/L (21-28) Arterial Blood Base Excess 4 mmol/L (-3-3) FiO2 28 Assessment and Plan Assessmemt and Plan Problems Medical Problems: (1) COPD exacerbation Status: Acute (2) Syncope Status: Acute Comment Review of Relevant I have reviewed the following items suki (where applicable) has been applied. Labs Laboratory Tests Test 05/09/18 11:56 05/09/18 13:36 05/09/18 20:58 05/10/18 07:17 White Blood Count 8.0 x10^3/uL (4.0-11.0) 10.9 x10^3/uL (4.0-11.0) Red Blood Count 5.49 x10^6/uL (3.50-5.40) 5.47 x10^6/uL (3.50-5.40) Hemoglobin 15.6 g/dL (12.0-15.5) 15.2 g/dL (12.0-15.5) Hematocrit 47.3 % (36.0-47.0) 47.6 % (36.0-47.0) Mean Corpuscular Volume 86 fL (79-100) 87 fL (79-100) Mean Corpuscular Hemoglobin 28 pg (25-35) 28 pg (25-35) Mean Corpuscular Hemoglobin Concent 33 g/dL (31-37) 32 g/dL (31-37) Red Cell Distribution Width 14.1 % (11.5-14.5) 14.2 % (11.5-14.5) Platelet Count 228 x10^3/uL (140-400) 231 x10^3/uL (140-400) Neutrophils (%) (Auto) 67 % (31-73) 88 % (31-73) Lymphocytes (%) (Auto) 23 % (24-48) 10 % (24-48) Monocytes (%) (Auto) 8 % (0-9) 2 % (0-9) Eosinophils (%) (Auto) 1 % (0-3) 0 % (0-3) Basophils (%) (Auto) 1 % (0-3) 0 % (0-3) Neutrophils # (Auto) 5.3 x10^3uL (1.8-7.7) 9.6 x10^3uL (1.8-7.7) Lymphocytes # (Auto) 1.9 x10^3/uL (1.0-4.8) 1.1 x10^3/uL (1.0-4.8) Monocytes # (Auto) 0.7 x10^3/uL (0.0-1.1) 0.3 x10^3/uL (0.0-1.1) Eosinophils # (Auto) 0.1 x10^3/uL (0.0-0.7) 0.0 x10^3/uL (0.0-0.7) Basophils # (Auto) 0.0 x10^3/uL (0.0-0.2) 0.0 x10^3/uL (0.0-0.2) Prothrombin Time 12.0 SEC (11.7-14.0) Prothromb Time International Ratio 0.9 (0.8-1.1) Sodium Level 139 mmol/L (136-145) 134 mmol/L (136-145) Potassium Level 3.9 mmol/L (3.5-5.1) 4.5 mmol/L (3.5-5.1) Chloride Level 99 mmol/L (98-107) 95 mmol/L (98-107) Carbon Dioxide Level 35 mmol/L (21-32) 31 mmol/L (21-32) Anion Gap 5 (6-14) 8 (6-14) Blood Urea Nitrogen 6 mg/dL (7-20) 14 mg/dL (7-20) Creatinine 0.9 mg/dL (0.6-1.0) 1.3 mg/dL (0.6-1.0) Estimated GFR (Cockcroft-Gault) 62.5 40.9 BUN/Creatinine Ratio 7 (6-20) Glucose Level 105 mg/dL (70-99) 197 mg/dL (70-99) Calcium Level 9.0 mg/dL (8.5-10.1) 8.7 mg/dL (8.5-10.1) Magnesium Level 1.8 mg/dL (1.8-2.4) Total Bilirubin 0.3 mg/dL (0.2-1.0) Aspartate Amino Transf (AST/SGOT) 23 U/L (15-37) Alanine Aminotransferase (ALT/SGPT) 19 U/L (14-59) Alkaline Phosphatase 89 U/L (46-116) Creatine Kinase 282 U/L (26-192) Creatine Kinase MB (Mass) 8.1 ng/mL (0.0-3.6) Creatine Kinase MB Relative Index 2.9 % (0-4) Troponin I Quantitative < 0.017 ng/mL (0.000-0.055) SG-Aaz-H-Type Natriuretic Peptide 140 pg/mL (0-124) Total Protein 7.3 g/dL (6.4-8.2) Albumin 3.2 g/dL (3.4-5.0) Albumin/Globulin Ratio 0.8 (1.0-1.7) Thyroid Stimulating Hormone (TSH) 2.305 uIU/mL (0.358-3.74) Influenza Type A Antigen Negative (NEGATIVE) Influenza Type B Antigen Negative (NEGATIVE) Urine Collection Type Void Urine Color Yellow Urine Clarity Clear Urine pH 6.5 Urine Specific Harrison 1.015 Urine Protein Negative mg/dL (NEG-TRACE) Urine Glucose (UA) Negative mg/dL (NEG) Urine Ketones (Stick) Negative mg/dL (NEG) Urine Blood Negative (NEG) Urine Nitrite Negative (NEG) Urine Bilirubin Negative (NEG) Urine Urobilinogen Dipstick 1.0 mg/dL (0.2 mg/dL) Urine Leukocyte Esterase Trace (NEG) Urine RBC Occ /HPF (0-2) Urine WBC Rare /HPF (0-4) Urine Squamous Epithelial Cells Many /LPF Urine Bacteria Moderate /HPF (0-FEW) Urine Opiates Screen Neg (NEG) Urine Methadone Screen Neg (NEG) Urine Barbiturates Neg (NEG) Urine Phencyclidine Screen Neg (NEG) Urine Amphetamine/Methamphetamine Neg (NEG) Urine Benzodiazepines Screen Pos (NEG) Urine Cocaine Screen Neg (NEG) Urine Cannabinoids Screen Neg (NEG) Urine Ethyl Alcohol Neg (NEG) O2 Saturation 93 % (92-99) Arterial Blood pH 7.40 (7.35-7.45) Arterial Blood pCO2 at Patient Temp 49 mmHg (35-46) Arterial Blood pO2 at Patient Temp 69 mmHg (65-108) Arterial Blood HCO3 30 mmol/L (21-28) Arterial Blood Base Excess 4 mmol/L (-3-3) FiO2 28 Laboratory Tests Test 05/09/18 11:56 05/09/18 13:36 05/09/18 20:58 05/10/18 07:17 White Blood Count 8.0 x10^3/uL (4.0-11.0) 10.9 x10^3/uL (4.0-11.0) Red Blood Count 5.49 x10^6/uL (3.50-5.40) 5.47 x10^6/uL (3.50-5.40) Hemoglobin 15.6 g/dL (12.0-15.5) 15.2 g/dL (12.0-15.5) Hematocrit 47.3 % (36.0-47.0) 47.6 % (36.0-47.0) Mean Corpuscular Volume 86 fL (79-100) 87 fL (79-100) Mean Corpuscular Hemoglobin 28 pg (25-35) 28 pg (25-35) Mean Corpuscular Hemoglobin Concent 33 g/dL (31-37) 32 g/dL (31-37) Red Cell Distribution Width 14.1 % (11.5-14.5) 14.2 % (11.5-14.5) Platelet Count 228 x10^3/uL (140-400) 231 x10^3/uL (140-400) Neutrophils (%) (Auto) 67 % (31-73) 88 % (31-73) Lymphocytes (%) (Auto) 23 % (24-48) 10 % (24-48) Monocytes (%) (Auto) 8 % (0-9) 2 % (0-9) Eosinophils (%) (Auto) 1 % (0-3) 0 % (0-3) Basophils (%) (Auto) 1 % (0-3) 0 % (0-3) Neutrophils # (Auto) 5.3 x10^3uL (1.8-7.7) 9.6 x10^3uL (1.8-7.7) Lymphocytes # (Auto) 1.9 x10^3/uL (1.0-4.8) 1.1 x10^3/uL (1.0-4.8) Monocytes # (Auto) 0.7 x10^3/uL (0.0-1.1) 0.3 x10^3/uL (0.0-1.1) Eosinophils # (Auto) 0.1 x10^3/uL (0.0-0.7) 0.0 x10^3/uL (0.0-0.7) Basophils # (Auto) 0.0 x10^3/uL (0.0-0.2) 0.0 x10^3/uL (0.0-0.2) Prothrombin Time 12.0 SEC (11.7-14.0) Prothromb Time International Ratio 0.9 (0.8-1.1) Sodium Level 139 mmol/L (136-145) 134 mmol/L (136-145) Potassium Level 3.9 mmol/L (3.5-5.1) 4.5 mmol/L (3.5-5.1) Chloride Level 99 mmol/L (98-107) 95 mmol/L (98-107) Carbon Dioxide Level 35 mmol/L (21-32) 31 mmol/L (21-32) Anion Gap 5 (6-14) 8 (6-14) Blood Urea Nitrogen 6 mg/dL (7-20) 14 mg/dL (7-20) Creatinine 0.9 mg/dL (0.6-1.0) 1.3 mg/dL (0.6-1.0) Estimated GFR (Cockcroft-Gault) 62.5 40.9 BUN/Creatinine Ratio 7 (6-20) Glucose Level 105 mg/dL (70-99) 197 mg/dL (70-99) Calcium Level 9.0 mg/dL (8.5-10.1) 8.7 mg/dL (8.5-10.1) Magnesium Level 1.8 mg/dL (1.8-2.4) Total Bilirubin 0.3 mg/dL (0.2-1.0) Aspartate Amino Transf (AST/SGOT) 23 U/L (15-37) Alanine Aminotransferase (ALT/SGPT) 19 U/L (14-59) Alkaline Phosphatase 89 U/L (46-116) Creatine Kinase 282 U/L (26-192) Creatine Kinase MB (Mass) 8.1 ng/mL (0.0-3.6) Creatine Kinase MB Relative Index 2.9 % (0-4) Troponin I Quantitative < 0.017 ng/mL (0.000-0.055) YO-Qhe-R-Type Natriuretic Peptide 140 pg/mL (0-124) Total Protein 7.3 g/dL (6.4-8.2) Albumin 3.2 g/dL (3.4-5.0) Albumin/Globulin Ratio 0.8 (1.0-1.7) Thyroid Stimulating Hormone (TSH) 2.305 uIU/mL (0.358-3.74) Influenza Type A Antigen Negative (NEGATIVE) Influenza Type B Antigen Negative (NEGATIVE) Urine Collection Type Void Urine Color Yellow Urine Clarity Clear Urine pH 6.5 Urine Specific Harrison 1.015 Urine Protein Negative mg/dL (NEG-TRACE) Urine Glucose (UA) Negative mg/dL (NEG) Urine Ketones (Stick) Negative mg/dL (NEG) Urine Blood Negative (NEG) Urine Nitrite Negative (NEG) Urine Bilirubin Negative (NEG) Urine Urobilinogen Dipstick 1.0 mg/dL (0.2 mg/dL) Urine Leukocyte Esterase Trace (NEG) Urine RBC Occ /HPF (0-2) Urine WBC Rare /HPF (0-4) Urine Squamous Epithelial Cells Many /LPF Urine Bacteria Moderate /HPF (0-FEW) Urine Opiates Screen Neg (NEG) Urine Methadone Screen Neg (NEG) Urine Barbiturates Neg (NEG) Urine Phencyclidine Screen Neg (NEG) Urine Amphetamine/Methamphetamine Neg (NEG) Urine Benzodiazepines Screen Pos (NEG) Urine Cocaine Screen Neg (NEG) Urine Cannabinoids Screen Neg (NEG) Urine Ethyl Alcohol Neg (NEG) O2 Saturation 93 % (92-99) Arterial Blood pH 7.40 (7.35-7.45) Arterial Blood pCO2 at Patient Temp 49 mmHg (35-46) Arterial Blood pO2 at Patient Temp 69 mmHg (65-108) Arterial Blood HCO3 30 mmol/L (21-28) Arterial Blood Base Excess 4 mmol/L (-3-3) FiO2 28 Medications Current Medications Albuterol/ Ipratropium (Duoneb) 3 ml 1X ONCE NEB Last administered on at 12:14; Start 05/09/18 at 12:15; Stop 05/09/18 at 12:16; Status DC Methylprednisolone Sodium Succinate (SOLU-Medrol 125MG VIAL) 125 mg 1X ONCE IV Last administered on 05/09/18at 12:16; Start 05/09/18 at 12:15; Stop 05/09/18 at 12:16; Status DC Fentanyl Citrate (Fentanyl 2ml Vial) 50 mcg 1X ONCE IV Last administered on 02/15at 12:48; Start 05/09/18 at 12:30; Stop 05/09/18 at 12:31; Status DC Alprazolam (Xanax) 0.5 mg 1X ONCE PO Last administered on 05/09/18at 12:49; Start 05/09/18 at 12:30; Stop 05/09/18 at 12:31; Status DC Nicotine (Nicoderm Cq 21mg) 1 patch 1X STAT TD Last administered on 05/09/18at 12:50; Start 05/09/18 at 12:21; Stop 05/09/18 at 12:24; Status DC Fentanyl Citrate (Fentanyl 2ml Vial) 50 mcg 1X ONCE IV Last administered on 02/15at 14:40; Start 05/09/18 at 14:30; Stop 05/09/18 at 14:33; Status DC Ondansetron HCl (Zofran) 4 mg PRN Q8HRS PRN IV NAUSEA/VOMITING Last administered on 05/10/18at 01:25; Start 05/09/18 at 15:30; Stop 05/10/18 at 15:29 Fentanyl Citrate (Fentanyl 2ml Vial) 50 mcg PRN Q1HR PRN IV PAIN; Start at 15:30; Stop 05/09/18 at 20:54; Status DC Albuterol/ Ipratropium (Duoneb) 3 ml RTQID NEB Last administered on 05/10/18at 08:15; Start 05/09/18 at 16:00; Stop 05/10/18 at 15:59 Methylprednisolone Sodium Succinate (SOLU-Medrol 40MG VIAL) 40 mg Q8HRS IV Last administered on 05/10/18 06:16; Start 05/09/18 at 22:00 Alprazolam (Xanax) 1 mg QID PO ; Start 05/09/18 at 21:15; Stop 05/09/18 at 21:15 ; Status DC Aspirin (Ecotrin) 81 mg DAILY PO Last administered on 05/10/18 08:11; Start at 09:00 Fludrocortisone Acetate (Florinef) 0.1 mg DAILY PO Last administered on 08:12; Start 05/10/18 at 09:00 Acetaminophen/ Hydrocodone Bitart (Lortab 10/325) 1 tab PRN Q6HRS PRN PO PAIN Last administered on 05/10/18 08:11; Start 05/09/18 at 20:45 Nitroglycerin (Nitrostat) 0.4 mg PRN Q5MIN PRN SL CHEST PAIN; Start 05/09/18 at 20:45 Potassium Chloride (Klor-Con) 10 meq DAILY07 PO Last administered on 05/10/18 08:11; Start 05/10/18 at 07:00 Benzonatate (Tessalon Perle) 100 mg [id number] PO Last administered on 05/10/18 08 :12; Start 05/09/18 at 21:00 Glyburide (Diabeta) 2.5 mg DAILY08 PO Last administered on 05/10/18 09:05; Start 05/10/18 at 08:00 Lisinopril (Prinivil) 5 mg DAILY PO Last administered on 05/10/18 08:12; Start 05/10/18 at 09:00 Nystatin (Mycostatin) 1 deo PRN BID PRN TP RASH; Start 05/09/18 at 21:00 Pantoprazole Sodium (Protonix) 40 mg DAILYAC PO Last administered on 05/10/18 08:11; Start 05/10/18 at 07:30 Promethazine HCl (Phenergan) 25 mg PRN Q6HRS PRN PO NAUSEA/VOMITING Last administered on 05/10/18 04:01; Start 05/09/18 at 21:00 Simvastatin (Zocor) 40 mg QHS PO Last administered on 05/09/18 21:15; Start at 21:00 Piperacillin Sod/ Tazobactam Sod 3.375 gm/Sodium Chloride 50 ml @ 100 mls/hr Q6HRS IV Last administered on 05/10/18 06:16; Start 05/10/18 at 00:00 Enoxaparin Sodium (Lovenox 40mg Syringe) 40 mg Q24H SQ Last administered on 21:16; Start 05/09/18 at 21:00 Fentanyl Citrate (Fentanyl 2ml Vial) 50 mcg PRN Q4HRS PRN IV PAIN Last administered on 05/10/18 03:44; Start 05/09/18 at 21:00 Doxycycline Hyclate 100 mg/ Dextrose 100 ml @ 50 mls/hr Q12HR IV Last administered on 05/10/18 08:12; Start 05/09/18 at 21:00 Alprazolam (Xanax) 1 mg QID PO Last administered on 05/09/18 21:41; Start 02/15 at 21:15 Nicotine (Nicoderm Cq 21mg) 1 patch DAILY TD Last administered on 05/10/18 09: 05; Start 05/10/18 at 09:00 Alprazolam (Xanax) 1 mg 1X ONCE PO Last administered on 05/10/18 09:05; Start 05/10/18 at 09:00; Stop 05/10/18 at 09:01; Status DC Active Scripts Active Levaquin (Levofloxacin) 500 Mg Tablet 500 Mg PO DAILY06 Fludrocortisone Acetate 0.1 Mg Tablet 0.1 Mg PO DAILY Benzonatate 100 Mg Capsule 100 Mg PO [id number] Hydrocodone-Apap 10-325 (Hydrocodone Bit/Acetaminophen) 1 Each Tablet 1 Tab PO PRN Q6HRS PRN Reported NITROGLYCERIN SubLingual (Nitroglycerin) 0.4 Mg Tab.subl 0.4 Mg SL PRN Q5MIN PRN Promethazine Hcl 25 Mg Tablet 1 Tab PO PRN Q6HRS Nystatin 15 Gm Cream..g. 1 Deo TP BID PRN Aspir 81 (Aspirin) 81 Mg Tablet. 1 Tab PO DAILY Lisinopril 5 Mg Tablet 1 Tab PO DAILY Zocor (Simvastatin) 40 Mg Tablet 40 Mg PO HS Prilosec (Omeprazole) 20 Mg Capsule.dr 20 Mg PO DAILY Glyburide 2.5 Mg Tablet 2.5 Mg PO DAILY Trazodone Hcl 150 Mg Tablet 150 Mg PO QHS Albuterol Sulfate Hfa Inhaler (Albuterol Sulfate) 8.5 Gm Hfa.aer.ad 8.5 Gm IH BID Potassium Chloride 10 Meq Tab.er.prt 10 Meq PO Xanax (Alprazolam) 0.25 Mg Tablet 1 Mg PO QID Vitals/I & O Vital Sign - Last 24 Hours 05/09/18 05/09/18 05/09/18 05/09/18 12:07 12:16 12:26 12:48 Temp 98.2 98.2 Pulse 79 68 Resp 28 43 B/P (MAP) 148/72 (97) Pulse Ox 92 94 O2 Delivery Room Air Nasal Cannula O2 Flow Rate 2.0 05/09/18 05/09/18 05/09/18 05/09/18 13:11 13:44 14:34 14:40 Pulse 66 85 78 Resp 34 24 Pulse Ox 95 05/09/18 05/09/18 05/09/18 05/09/18 16:00 16:30 19:00 19:23 Temp 97.8 97.9 97.8 97.9 Pulse 80 84 Resp 18 20 B/P (MAP) 170/63 (98) 172/65 (100) Pulse Ox 90 94 96 O2 Delivery Nasal Cannula Room Air Nasal Cannula O2 Flow Rate 2.0 2.0 05/09/18 05/09/18 05/09/18 05/09/18 20:00 21:20 23:00 23:43 Temp 98.0 98.0 Pulse 82 Resp 22 B/P (MAP) 174/63 (100) Pulse Ox 96 94 96 O2 Delivery Nasal Cannula Nasal Cannula Nasal Cannula O2 Flow Rate 2.0 2.0 2.0 05/10/18 05/10/18 05/10/18 05/10/18 01:26 02:26 03:00 03:44 Temp 97.8 97.8 Pulse 79 Resp 18 B/P (MAP) 160/80 (106) Pulse Ox 96 91 96 O2 Delivery Nasal Cannula Nasal Cannula O2 Flow Rate 2.0 2.0 05/10/18 05/10/18 05/10/18 05/10/18 04:14 07:00 08:11 08:12 Temp 97.9 97.9 Pulse 77 77 Resp 20 B/P (MAP) 155/61 (92) 155/61 Pulse Ox 96 91 O2 Delivery Nasal Cannula Nasal Cannula Nasal Cannula O2 Flow Rate 2.0 2.0 2.0 05/10/18 05/10/18 08:20 09:37 Pulse Ox 93 O2 Delivery Nasal Cannula Nasal Cannula O2 Flow Rate 2.0 2.0 Intake and Output 05/09/18 05/09/18 05/10/18 14:59 22:59 06:59 Intake Total 600 ml Balance 600 ml GONZALO VICNETE MD May 10, 2018 09:57
[2018-05-10 10:28] LABS: % ATYL 1 % (0-0); % BANDS 4 % (0-9); % LYMPHS 9 % (24-48); % MONOS 2 % (0-10); % SEGS 84 % (35-66); PLT ESTIMATE ADEQUATE (ADEQUATE); POLYCHROMASIA SLIGHT
[2018-05-10 11:00] VITALS: BP 150/60
[2018-05-10] MEDS ORDERED: ALPRAZolam 0.25 MG TABLET PO PRN (12:00)
--- NOTE | 2018-05-10 12:59 | CONS ---
DATE OF CONSULTATION: 05/10/2018 ATTENDING PHYSICIAN: Dr. Haque. REASON FOR CONSULTATION: Syncope, COPD. HISTORY OF PRESENT ILLNESS: The patient is a 68-year-old obese patient who has a BMI of 39.6 and smoker for 30 years, still smokes 1-1/2 pack per day. She presented to the hospital after recurrent syncopal episodes. The patient states this has happened twice this week. She is on chronic benzos and narcotics. She takes 1 mg of Xanax 4 times a day and also on Lortab frequently. She said she did not take any extra pills. However, upon my conversation, she was dozing off in between conversations. ABGs showed a pH of 7.40, pCO2 49, pO2 69 on 28% FIO2. The patient's chest x-ray did not reveal any obvious infiltrates. She denies any cough, denies any chest pain, no headaches, no nausea, vomiting, no diarrhea. No leg edema. No focal weakness. PAST MEDICAL HISTORY: Significant for history of COPD, unknown FEV1; history of narcotic dependence, history of chronic back pain, pancreatitis. PAST SURGICAL HISTORY: Appendectomy, cholecystectomy, hysterectomy. ALLERGIES: CODEINE. MEDICATIONS: Reviewed as listed in the MRAD. REVIEW OF SYSTEMS: Twelve-point system obtained. Pertinent positives discussed in my history of present illness, otherwise noncontributory. All systems that were negative were reviewed as well. SOCIAL HISTORY: Smoker for 30 years, one and half pack per day. FAMILY HISTORY: Noncontributory. PHYSICAL EXAMINATION: GENERAL: She is a bit lethargic, but she is able to answer most of the questions. VITAL SIGNS: Blood pressure 155/61, pulse ox 98% on 2 liters, afebrile. NECK: Supple. LUNGS: Clear. CARDIOVASCULAR: With a regular rhythm. ABDOMEN: Soft, obese. EXTREMITIES: With no pitting edema. She has ecchymosis on the right hip area from the fall. LABORATORY DATA: Reviewed. ABGs were discussed in my history of present illness. BUN and creatinine 14 and 1.3. Urine drug screen positive for benzos. White cell count 10.9. IMPRESSION: 1. Multiple syncopal episodes, likely related to medication overuse. She is on Xanax 1 mg 4 times a day, also on Lortab 4 times a day./ Fentanyl 50 mics . Chest x-ray is clear; unlikely any thromboembolic disease and CT head also did not reveal any intracranial findings. 2. Underlying chronic obstructive pulmonary disease. 3. Chronic dependence on narcotics and benzodiazepines. 4. Underlying morbid obesity and suspected obesity, hypoventilation syndrome. 5. Acute hypoxic respiratory failure secondary to underlying chronic obstructive pulmonary disease and hypoventilation. RECOMMENDATIONS: 1. Discussed with patient and RN. I would recommend to minimize benzodiazepines. I have recommended to reduce the dose of Xanax 0.25 q.i.d. and also minimize the dose of Lortab along with minimizing fentanyl as well. 2. Monitor respiratory status closely. 3. No suspicion of thromboembolic disease. We will obtain D-dimer at present only. 4. Continue with present oxygen. 5. Monitor mental status closely. 6. PFTs as an outpatient. 7. Smoking cessation counseling provided. 8. Discussed with RN and patient. ANJELICA PASCUAL MD DR: KELSEY/isadora JOB#: [id number] / [id number] DARREL
--- NOTE | 2018-05-10 14:36 | RAD ---
CT of the cervical spine without contrast, 05/28/2018: HISTORY: Fall Noncontrast scans were obtained with multiplanar reconstructions produced. There is considerable disc space narrowing at C5-6 and C6-7. There may be partial fusion of the C5-6 disc space. There is considerable anterior and posterior marginal spurring at the C6-7 disc space. There is mild disc space narrowing at C4-5 and C7-T1. There are degenerative changes involving scattered facet joints bilaterally. The posterior disc margins are not adequately delineated. The combination of bony findings is causing mild central spinal stenosis at C6-7 and borderline central spinal stenosis at several other levels in the upper cervical spine. There is mild left foraminal narrowing at C3-4 and C6-7. No fracture or subluxation is evident. IMPRESSION: 1. Moderate multilevel degenerative change. 2. No acute bony abnormality is detected. PQRS Compliance Statement: One or more of the following individualized dose reduction techniques were utilized for this examination: 1. Automated exposure control 2. Adjustment of the mA and/or kV according to patient size 3. Use of iterative reconstruction technique Electronically signed by: Ravinder Thomason MD (05/10/2018 2:33 PM) [facility]
[2018-05-10 15:00] VITALS: BP 102/46
[2018-05-10] MEDS: ALPRAZolam 0.25 MG TABLET PO SCH ×2 (16:41→20:55)
--- NOTE | 2018-05-10 17:12 | PDOC2 ---
NEUROLOGY CONSULT Date of Admission Date of Admission DATE: 05/10/18 TIME: 17:00 Reason for Consult Reason for Consult: IMPRESSION: Falls. Respiratory distress. Degenerative C-spine disease. HTN. COPD. Obesity. Smoking. RECOMMENDATIONS/PLAN: CCT, performed. Lab: see orders. Treat medical diseases. Consult Dr. Hunt. Weight reduction. OT/PT. HISTORY OF THE PRESENT ILLNESS: 68-y-old female patient with hx of above medical diseases has symptoms of SOB, difficult breathing and was admitted for further evaluation. She complained falls about 2 times a month for several months, so Neurology was requested for consultation. PAST MEDICAL HISTORY: COPD, unknown FEV1; history of narcotic dependence, history of chronic back pain , pancreatitis. PAST SURGICAL HISTORY: Appendectomy, cholecystectomy, hysterectomy. ALLERGIES: CODEINE. SOCIAL HISTORY: Smoker for 30 years, one and half pack per day. MEDICATIONS: Refer to MAR REVIEW OF SYSTEMS: Constitutional: Obesity. Head: No traumatic brain or head injury. Skin: No edema, or rash. Ear: No infection, tinnitus. Eyes: No vision loss or color blindness. Nose: No bleeding or purulent discharges. Hearing: Mild hearing decrease. Neck: No injury. Breast: No history of cancer, masses,or discharges. Cardiac: HTN. Pulmonary: COPD. GI: No GI ulcer, GI bleeding. Urinary/genital: UTI. Endocrinologic: Obesity. Skeletomuscular: Generalized weakness. Neurological: see HP. Psychiatric: Denies drug use/abuse. Otherwise, not [id number] review of systems. PHYSICAL EXAMINATION: General appearance is in subacute distress. HEENT: Normocephalic and nontraumatic. Eyes, nose, ears, and throat are unremarkable. Neck is supple. No lymphadenopathy. No crepitus. Cardiovascular: S1, S2, regular rate and rhythm. Pulmonary: Clear to auscultation bilaterally. Abdomen: Bowel sounds are positive. Extremities: No rash, lesions, or edema. No restriction of range of motion NEUROLOGICAL EXAMINATION: Alert Oriented to time, place and person. PERRL. EOMI. CN: no focal findings. Muscle tone: within normal. Muscle strength: 4+ DTR: 1 UE, 0-1 at knee due to obesity. Plantar reflex: Flexor response bilaterally Gait: not examined in bed. Sensory exam: no abnormal findings. No cerebellar signs elicited. F-T-N test accurate. Current Medications Current Medications Current Medications Albuterol/ Ipratropium (Duoneb) 3 ml 1X ONCE NEB Last administered on 12:14; Start 05/09/18 at 12:15; Stop 05/09/18 at 12:16; Status DC Methylprednisolone Sodium Succinate (SOLU-Medrol 125MG VIAL) 125 mg 1X ONCE IV Last administered on 05/09/18at 12:16; Start 05/09/18 at 12:15; Stop 05/09/18 at 12:16; Status DC Fentanyl Citrate (Fentanyl 2ml Vial) 50 mcg 1X ONCE IV Last administered on 02/15at 12:48; Start 05/09/18 at 12:30; Stop 05/09/18 at 12:31; Status DC Alprazolam (Xanax) 0.5 mg 1X ONCE PO Last administered on 05/09/18at 12:49; Start 05/09/18 at 12:30; Stop 05/09/18 at 12:31; Status DC Nicotine (Nicoderm Cq 21mg) 1 patch 1X STAT TD Last administered on 05/09/18at 12:50; Start 05/09/18 at 12:21; Stop 05/09/18 at 12:24; Status DC Fentanyl Citrate (Fentanyl 2ml Vial) 50 mcg 1X ONCE IV Last administered on 02/15at 14:40; Start 05/09/18 at 14:30; Stop 05/09/18 at 14:33; Status DC Ondansetron HCl (Zofran) 4 mg PRN Q8HRS PRN IV NAUSEA/VOMITING Last administered on 05/10/18at 01:25; Start 05/09/18 at 15:30; Stop 05/10/18 at 15:29 ; Status DC Fentanyl Citrate (Fentanyl 2ml Vial) 50 mcg PRN Q1HR PRN IV PAIN; Start at 15:30; Stop 05/09/18 at 20:54; Status DC Albuterol/ Ipratropium (Duoneb) 3 ml RTQID NEB Last administered on 05/10/18at 15:37; Start 05/09/18 at 16:00; Stop 05/10/18 at 15:59; Status DC Methylprednisolone Sodium Succinate (SOLU-Medrol 40MG VIAL) 40 mg Q8HRS IV Last administered on 05/10/18 16:40; Start 05/09/18 at 22:00 Alprazolam (Xanax) 1 mg QID PO ; Start 05/09/18 at 21:15; Stop 05/09/18 at 21:15 ; Status DC Aspirin (Ecotrin) 81 mg DAILY PO Last administered on 05/10/18 08:11; Start at 09:00 Fludrocortisone Acetate (Florinef) 0.1 mg DAILY PO Last administered on 08:12; Start 05/10/18 at 09:00 Acetaminophen/ Hydrocodone Bitart (Lortab 10/325) 1 tab PRN Q6HRS PRN PO PAIN Last administered on 05/10/18 16:41; Start 05/09/18 at 20:45 Nitroglycerin (Nitrostat) 0.4 mg PRN Q5MIN PRN SL CHEST PAIN; Start 05/09/18 at 20:45 Potassium Chloride (Klor-Con) 10 meq DAILY07 PO Last administered on 05/10/18 08:11; Start 05/10/18 at 07:00 Benzonatate (Tessalon Perle) 100 mg [id number] PO Last administered on 05/10/18 16 :40; Start 05/09/18 at 21:00 Glyburide (Diabeta) 2.5 mg DAILY08 PO Last administered on 05/10/18 09:05; Start 05/10/18 at 08:00 Lisinopril (Prinivil) 5 mg DAILY PO Last administered on 05/10/18 08:12; Start 05/10/18 at 09:00 Nystatin (Mycostatin) 1 deo PRN BID PRN TP RASH; Start 05/09/18 at 21:00 Pantoprazole Sodium (Protonix) 40 mg DAILYAC PO Last administered on 05/10/18 08:11; Start 05/10/18 at 07:30 Promethazine HCl (Phenergan) 25 mg PRN Q6HRS PRN PO NAUSEA/VOMITING Last administered on 05/10/18 04:01; Start 05/09/18 at 21:00 Simvastatin (Zocor) 40 mg QHS PO Last administered on 05/09/18 21:15; Start at 21:00 Piperacillin Sod/ Tazobactam Sod 3.375 gm/Sodium Chloride 50 ml @ 100 mls/hr Q6HRS IV Last administered on 05/10/18at 16:41; Start 05/10/18 at 00:00 Enoxaparin Sodium (Lovenox 40mg Syringe) 40 mg Q24H SQ Last administered on 02/15at 21:16; Start 05/09/18 at 21:00 Fentanyl Citrate (Fentanyl 2ml Vial) 50 mcg PRN Q4HRS PRN IV PAIN Last administered on 05/10/18 03:44; Start 05/09/18 at 21:00; Stop 05/10/18 at 11:54 ; Status DC Doxycycline Hyclate 100 mg/ Dextrose 100 ml @ 50 mls/hr Q12HR IV Last administered on 05/10/18 08:12; Start 05/09/18 at 21:00 Alprazolam (Xanax) 1 mg QID PO Last administered on 05/09/18at 21:41; Start 02/15 at 21:15; Stop 05/10/18 at 11:54; Status DC Nicotine (Nicoderm Cq 21mg) 1 patch DAILY TD Last administered on 05/10/18 09: 05; Start 05/10/18 at 09:00 Alprazolam (Xanax) 1 mg 1X ONCE PO Last administered on 05/10/18 09:05; Start 05/10/18 at 09:00; Stop 05/10/18 at 09:01; Status DC Alprazolam (Xanax) 0.25 mg PRN QID PRN PO ANXIETY / AGITATION; Start 05/10/18 at 12:00; Stop 05/10/18 at 14:35; Status DC Alprazolam (Xanax) 0.25 mg QID PO Last administered on 05/10/18 16:41; Start 05/10/18 at 17:00 Active Scripts Active Levaquin (Levofloxacin) 500 Mg Tablet 500 Mg PO DAILY06 Fludrocortisone Acetate 0.1 Mg Tablet 0.1 Mg PO DAILY Benzonatate 100 Mg Capsule 100 Mg PO [id number] Hydrocodone-Apap 10-325 (Hydrocodone Bit/Acetaminophen) 1 Each Tablet 1 Tab PO PRN Q6HRS PRN Reported NITROGLYCERIN SubLingual (Nitroglycerin) 0.4 Mg Tab.subl 0.4 Mg SL PRN Q5MIN PRN Promethazine Hcl 25 Mg Tablet 1 Tab PO PRN Q6HRS Nystatin 15 Gm Cream..g. 1 Deo TP BID PRN Aspir 81 (Aspirin) 81 Mg Tablet.dr 1 Tab PO DAILY Lisinopril 5 Mg Tablet 1 Tab PO DAILY Zocor (Simvastatin) 40 Mg Tablet 40 Mg PO HS Prilosec (Omeprazole) 20 Mg Capsule.dr 20 Mg PO DAILY Glyburide 2.5 Mg Tablet 2.5 Mg PO DAILY Trazodone Hcl 150 Mg Tablet 150 Mg PO QHS Albuterol Sulfate Hfa Inhaler (Albuterol Sulfate) 8.5 Gm Hfa.aer.ad 8.5 Gm IH BID Potassium Chloride 10 Meq Tab.er.prt 10 Meq PO Xanax (Alprazolam) 0.25 Mg Tablet 1 Mg PO QID Allergies Allergies: Allergies Coded Allergies Type Severity Reaction Last Updated Verified codeine Allergy Intermediate hives 07/10/15 Yes ROS Review of System The patient denies any associated fevers, chills, headache, ear pain, rhinorrhea , sore throat, stiff neck, productive cough, chest pain, shortness of breath, back or flank pain, abdominal pain, nausea, vomiting, diarrhea, constipation, dysuria, rash, numbness, weakness, tingling, incontinence, difficulty ambulating, or diaphoresis. Physical Exam Physical Exam General: Well developed, well nourished, no acute distress, well appearing HEENT: Pupils equally round and reactive to light, EOMI, no discharge, normal conjunctiva Neck: Supple, no nuchal rigidity, no JVD, trachea midline, no tenderness Cardiac: RRR, no murmurs, no gallops, no rubs Chest/Lungs: CTAB, no wheeze, no rhonchi, no crackles Abdomen: soft, non-distended, no guarding, no peritoneal signs, non-tender Back: No tenderness Extremities: no edema, pulses intact, non-tender,capillary refill <3 sec bilateral upper and lower extremities, Neuro: Alert and oriented x 4, no focal deficits, normal speech Vitals Vitals: Vital Signs Date Time Temp Pulse Resp B/P (MAP) Pulse Ox O2 Delivery O2 Flow Rate FiO2 05/10/18 16:41 Nasal Cannula 2.0 05/10/18 15:00 97.4 63 20 102/46 (74) 94 97.4 Labs Labs Laboratory Tests Test 05/09/18 11:56 05/09/18 13:36 05/09/18 20:58 05/10/18 07:17 White Blood Count 8.0 x10^3/uL (4.0-11.0) 10.9 x10^3/uL (4.0-11.0) Red Blood Count 5.49 x10^6/uL (3.50-5.40) 5.47 x10^6/uL (3.50-5.40) Hemoglobin 15.6 g/dL (12.0-15.5) 15.2 g/dL (12.0-15.5) Hematocrit 47.3 % (36.0-47.0) 47.6 % (36.0-47.0) Mean Corpuscular Volume 86 fL (79-100) 87 fL (79-100) Mean Corpuscular Hemoglobin 28 pg (25-35) 28 pg (25-35) Mean Corpuscular Hemoglobin Concent 33 g/dL (31-37) 32 g/dL (31-37) Red Cell Distribution Width 14.1 % (11.5-14.5) 14.2 % (11.5-14.5) Platelet Count 228 x10^3/uL (140-400) 231 x10^3/uL (140-400) Neutrophils (%) (Auto) 67 % (31-73) 88 % (31-73) Lymphocytes (%) (Auto) 23 % (24-48) 10 % (24-48) Monocytes (%) (Auto) 8 % (0-9) 2 % (0-9) Eosinophils (%) (Auto) 1 % (0-3) 0 % (0-3) Basophils (%) (Auto) 1 % (0-3) 0 % (0-3) Neutrophils # (Auto) 5.3 x10^3uL (1.8-7.7) 9.6 x10^3uL (1.8-7.7) Lymphocytes # (Auto) 1.9 x10^3/uL (1.0-4.8) 1.1 x10^3/uL (1.0-4.8) Monocytes # (Auto) 0.7 x10^3/uL (0.0-1.1) 0.3 x10^3/uL (0.0-1.1) Eosinophils # (Auto) 0.1 x10^3/uL (0.0-0.7) 0.0 x10^3/uL (0.0-0.7) Basophils # (Auto) 0.0 x10^3/uL (0.0-0.2) 0.0 x10^3/uL (0.0-0.2) Prothrombin Time 12.0 SEC (11.7-14.0) Prothromb Time International Ratio 0.9 (0.8-1.1) Sodium Level 139 mmol/L (136-145) 134 mmol/L (136-145) Potassium Level 3.9 mmol/L (3.5-5.1) 4.5 mmol/L (3.5-5.1) Chloride Level 99 mmol/L (98-107) 95 mmol/L (98-107) Carbon Dioxide Level 35 mmol/L (21-32) 31 mmol/L (21-32) Anion Gap 5 (6-14) 8 (6-14) Blood Urea Nitrogen 6 mg/dL (7-20) 14 mg/dL (7-20) Creatinine 0.9 mg/dL (0.6-1.0) 1.3 mg/dL (0.6-1.0) Estimated GFR (Cockcroft-Gault) 62.5 40.9 BUN/Creatinine Ratio 7 (6-20) Glucose Level 105 mg/dL (70-99) 197 mg/dL (70-99) Calcium Level 9.0 mg/dL (8.5-10.1) 8.7 mg/dL (8.5-10.1) Magnesium Level 1.8 mg/dL (1.8-2.4) Total Bilirubin 0.3 mg/dL (0.2-1.0) Aspartate Amino Transf (AST/SGOT) 23 U/L (15-37) Alanine Aminotransferase (ALT/SGPT) 19 U/L (14-59) Alkaline Phosphatase 89 U/L (46-116) Creatine Kinase 282 U/L (26-192) Creatine Kinase MB (Mass) 8.1 ng/mL (0.0-3.6) Creatine Kinase MB Relative Index 2.9 % (0-4) Troponin I Quantitative < 0.017 ng/mL (0.000-0.055) RN-Lqa-W-Type Natriuretic Peptide 140 pg/mL (0-124) Total Protein 7.3 g/dL (6.4-8.2) Albumin 3.2 g/dL (3.4-5.0) Albumin/Globulin Ratio 0.8 (1.0-1.7) Thyroid Stimulating Hormone (TSH) 2.305 uIU/mL (0.358-3.74) Influenza Type A Antigen Negative (NEGATIVE) Influenza Type B Antigen Negative (NEGATIVE) Urine Collection Type Void Urine Color Yellow Urine Clarity Clear Urine pH 6.5 Urine Specific [place] 1.015 Urine Protein Negative mg/dL (NEG-TRACE) Urine Glucose (UA) Negative mg/dL (NEG) Urine Ketones (Stick) Negative mg/dL (NEG) Urine Blood Negative (NEG) Urine Nitrite Negative (NEG) Urine Bilirubin Negative (NEG) Urine Urobilinogen Dipstick 1.0 mg/dL (0.2 mg/dL) Urine Leukocyte Esterase Trace (NEG) Urine RBC Occ /HPF (0-2) Urine WBC Rare /HPF (0-4) Urine Squamous Epithelial Cells Many /LPF Urine Bacteria Moderate /HPF (0-FEW) Urine Opiates Screen Neg (NEG) Urine Methadone Screen Neg (NEG) Urine Barbiturates Neg (NEG) Urine Phencyclidine Screen Neg (NEG) Urine Amphetamine/Methamphetamine Neg (NEG) Urine Benzodiazepines Screen Pos (NEG) Urine Cocaine Screen Neg (NEG) Urine Cannabinoids Screen Neg (NEG) Urine Ethyl Alcohol Neg (NEG) O2 Saturation 93 % (92-99) Arterial Blood pH 7.40 (7.35-7.45) Arterial Blood pCO2 at Patient Temp 49 mmHg (35-46) Arterial Blood pO2 at Patient Temp 69 mmHg (65-108) Arterial Blood HCO3 30 mmol/L (21-28) Arterial Blood Base Excess 4 mmol/L (-3-3) FiO2 28 Segmented Neutrophils % 84 % (35-66) Band Neutrophils % 4 % (0-9) Lymphocytes % 9 % (24-48) Atypical Lymphocytes % (Manual) 1 % (0-0) Monocytes % 2 % (0-10) Platelet Estimate Adequate (ADEQUATE) Polychromasia Slight Test 05/10/18 12:05 D-Dimer (Joanna) 0.32 ug/mlFEU (0.00-0.50) Laboratory Tests Test 05/09/18 20:58 05/10/18 07:17 05/10/18 12:05 O2 Saturation 93 % (92-99) Arterial Blood pH 7.40 (7.35-7.45) Arterial Blood pCO2 at Patient Temp 49 mmHg (35-46) Arterial Blood pO2 at Patient Temp 69 mmHg (65-108) Arterial Blood HCO3 30 mmol/L (21-28) Arterial Blood Base Excess 4 mmol/L (-3-3) FiO2 28 White Blood Count 10.9 x10^3/uL (4.0-11.0) Red Blood Count 5.47 x10^6/uL (3.50-5.40) Hemoglobin 15.2 g/dL (12.0-15.5) Hematocrit 47.6 % (36.0-47.0) Mean Corpuscular Volume 87 fL (79-100) Mean Corpuscular Hemoglobin 28 pg (25-35) Mean Corpuscular Hemoglobin Concent 32 g/dL (31-37) Red Cell Distribution Width 14.2 % (11.5-14.5) Platelet Count 231 x10^3/uL (140-400) Neutrophils (%) (Auto) 88 % (31-73) Lymphocytes (%) (Auto) 10 % (24-48) Monocytes (%) (Auto) 2 % (0-9) Eosinophils (%) (Auto) 0 % (0-3) Basophils (%) (Auto) 0 % (0-3) Neutrophils # (Auto) 9.6 x10^3uL (1.8-7.7) Lymphocytes # (Auto) 1.1 x10^3/uL (1.0-4.8) Monocytes # (Auto) 0.3 x10^3/uL (0.0-1.1) Eosinophils # (Auto) 0.0 x10^3/uL (0.0-0.7) Basophils # (Auto) 0.0 x10^3/uL (0.0-0.2) Segmented Neutrophils % 84 % (35-66) Band Neutrophils % 4 % (0-9) Lymphocytes % 9 % (24-48) Atypical Lymphocytes % (Manual) 1 % (0-0) Monocytes % 2 % (0-10) Platelet Estimate Adequate (ADEQUATE) Polychromasia Slight Sodium Level 134 mmol/L (136-145) Potassium Level 4.5 mmol/L (3.5-5.1) Chloride Level 95 mmol/L (98-107) Carbon Dioxide Level 31 mmol/L (21-32) Anion Gap 8 (6-14) Blood Urea Nitrogen 14 mg/dL (7-20) Creatinine 1.3 mg/dL (0.6-1.0) Estimated GFR (Cockcroft-Gault) 40.9 Glucose Level 197 mg/dL (70-99) Calcium Level 8.7 mg/dL (8.5-10.1) D-Dimer (Joanna) 0.32 ug/mlFEU (0.00-0.50) MAHENDRA KUHN MD May 10, 2018 17:11
[2018-05-10 19:00] VITALS: BP 111/68
--- NOTE | 2018-05-10 19:53 | EEG ---
DATE OF SERVICE: 05/10/2018 ELECTROENCEPHALOGRAM NUMBER: [id number]. OBJECTIVE: This is a 68-year-old female patient with history of syncope versus seizure and frequent falls. EEG was requested to help rule out seizure. METHODS: Twenty electrodes were applied according to the international 10-20 electrode placement system. EKG monitoring, hyperventilation, intermittent photic stimulation, monopolar and bipolar montages are routinely utilized. The record was obtained on a digital system with video monitoring. FINDINGS: 1. Background: The patient was recorded in the awake, drowsy, and sleep states. The overall background amplitude is 10-25 microvolts. A posterior dominant rhythm of 8-10 Hz is observed. 2. Abnormalities: No specific epileptiform discharge or electrographic seizure is seen. No focal or diffuse slowing. O1, O2 leads may not be well placed. 3. Activation: Hyperventilation was performed with fair efforts and normal response. Intermittent photic stimulation was performed with photic driving. No specific epileptiform discharge or electrographic seizure induced by hyperventilation or intermittent photic stimulation. IMPRESSION: This electroencephalogram is within the broad normal limits of the study for the awake, drowsy, and sleep states. No focal, lateralizing, specific epileptiform discharge, or electrographic seizure is seen. MAHENDRA KUHN MD DR: HEIDI/isadora JOB#: [id number] / [id number] DARREL
[2018-05-10] MEDS: SIMVASTATIN 40 MG TABLET. PO SCH (20:55)
[2018-05-10] MEDS: ENOXAPARIN 40 MG/0.4 ML SYRINGE. SQ SCH (20:55)
[2018-05-10 23:00] VITALS: BP 104/62
[2018-05-11 03:00] VITALS: BP 146/77
[2018-05-11] MEDS: methylPREDNISolone SOD SUCC PF 40 MG/ML VIAL. IV SCH ×2 (06:26→12:43)
[2018-05-11] MEDS: PIPERACILLIN/TAZOBACTAM 3.375 GM in IV NORMAL SALINE 50ML 50 ML IV SCH ×2 (06:27→12:44)
[2018-05-11 07:00] VITALS: BP 129/68
[2018-05-11] MEDS: IPRATRPIUM/ALBUTEROL 0.5/2.5MG 3 ML NEBU. NEB SCH ×2 (07:52→11:22)
[2018-05-11] MEDS: FLUDROCORTISONE 0.1 MG TABLET PO SCH (07:59)
[2018-05-11] MEDS: glyBURIDE 1.25 MG TABLET PO SCH (07:59)
[2018-05-11] MEDS: ASPIRIN ENTERIC COATED 81 MG TABLET.DR. PO SCH (08:00)
[2018-05-11] MEDS: PANTOPRAZOLE 40 MG TABLET.DR. PO SCH (08:00)
[2018-05-11] MEDS: NICOTINE 21MG PATCH. TD SCH (08:00)
[2018-05-11] MEDS: POTASSIUM CHLORIDE 10 MEQ TABLET.ER. PO SCH (08:00)
[2018-05-11] MEDS: BENZONATATE 100 MG CAPSULE. PO SCH ×2 (08:00→12:44)
[2018-05-11] MEDS: ALPRAZolam 0.25 MG TABLET PO SCH ×2 (08:00→12:43)
[2018-05-11] MEDS: LISINOPRIL 5 MG TABLET. PO SCH (08:01)
[2018-05-11] MEDS: HYDROcodone/APAP 10/325 1 TAB TABLET PO PRN ×2 (08:01→14:02)
[2018-05-11] MEDS: DOXYCYCLINE HYCLATE 100 MG in IV DEXTROSE 5% 100ML 100 ML IV SCH (08:02)
[2018-05-11] MEDS ORDERED: methylPREDNISolone ACETATE 40 MG/ML VIAL. IM ONE (11:00)
[2018-05-11] MEDS ORDERED: BUPIVACAINE MPF 0.25% 10 ML VIAL. IJ ONE (11:00)
[2018-05-11 11:04] VITALS: BP 134/61
--- NOTE | 2018-05-11 11:49 | NUR ---
SW following. Discussed with RN, RN advised pt is indp at home with no SW needs. RN anticipates pt will discharge home with today. SW will continue to follow.
[2018-05-11] MEDS ORDERED: HYDR-3164 PO (13:07)
[2018-05-11] MEDS ORDERED: DOXY100T PO (13:07)
--- NOTE | 2018-05-11 13:09 | SNU/HH DC ---
DISCHARGE WITH HOME HEALTH DISCHARGE INFORMATION: Discharge Date: May 11, 2018 Final Diagnosis: Problems Medical Problems: (1) COPD exacerbation Status: Acute (2) Syncope Status: Acute Condition on Discharge: Stable CODE STATUS: Code Status: Full HOME HEALTH: Face to Face: I certify this patient is under my care and that I, or a nurse practitioner or physician's customer care assistant working with me, had a face to face encounter that meets the physician face to face encounter requirements with this patient on 05/11 Physical Therapy For: Evalulation/Treatment Occupational Therapy For: Evaluation/Treatment POST DISCHARGE ORDERS: DIET AFTER DISCHARGE: Regular FOLLOW-UP: Follow up with: primary care CERTIFICATION STATEMENT: Certification Statement: Certification Statement: Based on the above finding, I certify that this patient is confined to the home and needs intermittent fci care, physical therapy and/or speech therapy, or continues to need occupational therapy.~ This patient is under my care, and I have initiated the establishment of the plan of care.~ This patient will be followed by myself or a community physician who will periodically review the plan of care. Home Meds Active Scripts Doxycycline Hyclate (DOXYCYCLINE HYCLATE) 100 Mg Tablet, 1 TAB PO BID for bronchitis, #14 TAB Prov:GONZALO VICENTE MD 05/11/18 Hydrocodone/Apap 5-325 (NORCO 5-325 TABLET) 1 Each Tablet, 1 TAB PO QID PRN for PAIN, #24 TAB Prov:GONZALO VICENTE MD 05/11/18 Levofloxacin (LEVAQUIN) 500 Mg Tablet, 500 MG PO DAILY06, #5 Prov:LORRAINE ROUSE MD 07/11/15 Fludrocortisone Acetate (FLUDROCORTISONE ACETATE) 0.1 Mg Tablet, 0.1 MG PO DAILY , #30 Prov:LORRAINE ROUSE MD 07/11/15 Benzonatate (BENZONATATE) 100 Mg Capsule, 100 MG PO [id number], #20 Prov:LORRAINE ROUSE MD 07/11/15 Hydrocodone Bit/Acetaminophen (HYDROCODONE-APAP 10-325 ) 1 Each Tablet, 1 TAB PO PRN Q6HRS PRN for PAIN, #10 TAB 0 Refills Prov:LORRAINE ROUSE MD 07/11/15 Reported Medications Nitroglycerin (NITROGLYCERIN SubLingual) 0.4 Mg Tab.subl, 0.4 MG SL PRN Q5MIN PRN for CHEST PAIN, BOTTLE 07/08/15 Promethazine Hcl (PROMETHAZINE HCL) 25 Mg Tablet, 1 TAB PO PRN Q6HRS, #20 TAB 07/08/15 Nystatin (NYSTATIN) 15 Gm Cream..g., 1 YONAS TP BID PRN for yeast infection, #30 GM 07/08/15 Aspirin (ASPIR 81) 81 Mg Tablet.dr, 1 TAB PO DAILY, #30 TAB 5 Refills 07/08/15 Lisinopril (LISINOPRIL) 5 Mg Tablet, 1 TAB PO DAILY, #30 TAB 5 Refills 07/08/15 Simvastatin (ZOCOR) 40 Mg Tablet, 40 MG PO HS 04/26/13 Omeprazole (PRILOSEC) 20 Mg Capsule.dr, 20 MG PO DAILY for GERD 04/26/13 Glyburide (GLYBURIDE) 2.5 Mg Tablet, 2.5 MG PO DAILY 04/26/13 Trazodone Hcl (TRAZODONE HCL) 150 Mg Tablet, 150 MG PO QHS 04/26/13 Albuterol Sulfate (ALBUTEROL SULFATE HFA INHALER) 8.5 Gm Hfa.aer.ad, 8.5 GM IH BID 04/26/13 Potassium Chloride (POTASSIUM CHLORIDE) 10 Meq Tab.er.prt, 10 MEQ PO 04/26/13 Alprazolam (XANAX) 0.25 Mg Tablet, 1 MG PO QID 04/26/13 GONZALO VICENTE MD May 11, 2018 13:09
--- NOTE | 2018-05-11 13:25 | PDOC ---
PULMONARY PROGRESS NOTES Subjective no soa fully awake Vitals Vital Signs Date Time Temp Pulse Resp B/P (MAP) Pulse Ox O2 Delivery O2 Flow Rate FiO2 05/11/18 11:22 90 Room Air 05/11/18 11:04 97.6 55 18 134/61 (85) 2.0 97.6 General: Alert, Oriented X4, No acute distress Lungs: Clear Cardiovascular: S1, S2 Abdomen: Soft, Non-tender Extremities: Other (1+edema) Labs Laboratory Tests Test 05/09/18 13:36 05/09/18 20:58 05/10/18 07:17 05/10/18 12:05 Urine Collection Type Void Urine Color Yellow Urine Clarity Clear Urine pH 6.5 Urine Specific [place] 1.015 Urine Protein Negative mg/dL (NEG-TRACE) Urine Glucose (UA) Negative mg/dL (NEG) Urine Ketones (Stick) Negative mg/dL (NEG) Urine Blood Negative (NEG) Urine Nitrite Negative (NEG) Urine Bilirubin Negative (NEG) Urine Urobilinogen Dipstick 1.0 mg/dL (0.2 mg/dL) Urine Leukocyte Esterase Trace (NEG) Urine RBC Occ /HPF (0-2) Urine WBC Rare /HPF (0-4) Urine Squamous Epithelial Cells Many /LPF Urine Bacteria Moderate /HPF (0-FEW) Urine Opiates Screen Neg (NEG) Urine Methadone Screen Neg (NEG) Urine Barbiturates Neg (NEG) Urine Phencyclidine Screen Neg (NEG) Urine Amphetamine/Methamphetamine Neg (NEG) Urine Benzodiazepines Screen Pos (NEG) Urine Cocaine Screen Neg (NEG) Urine Cannabinoids Screen Neg (NEG) Urine Ethyl Alcohol Neg (NEG) O2 Saturation 93 % (92-99) Arterial Blood pH 7.40 (7.35-7.45) Arterial Blood pCO2 at Patient Temp 49 mmHg (35-46) Arterial Blood pO2 at Patient Temp 69 mmHg (65-108) Arterial Blood HCO3 30 mmol/L (21-28) Arterial Blood Base Excess 4 mmol/L (-3-3) FiO2 28 White Blood Count 10.9 x10^3/uL (4.0-11.0) Red Blood Count 5.47 x10^6/uL (3.50-5.40) Hemoglobin 15.2 g/dL (12.0-15.5) Hematocrit 47.6 % (36.0-47.0) Mean Corpuscular Volume 87 fL (79-100) Mean Corpuscular Hemoglobin 28 pg (25-35) Mean Corpuscular Hemoglobin Concent 32 g/dL (31-37) Red Cell Distribution Width 14.2 % (11.5-14.5) Platelet Count 231 x10^3/uL (140-400) Neutrophils (%) (Auto) 88 % (31-73) Lymphocytes (%) (Auto) 10 % (24-48) Monocytes (%) (Auto) 2 % (0-9) Eosinophils (%) (Auto) 0 % (0-3) Basophils (%) (Auto) 0 % (0-3) Neutrophils # (Auto) 9.6 x10^3uL (1.8-7.7) Lymphocytes # (Auto) 1.1 x10^3/uL (1.0-4.8) Monocytes # (Auto) 0.3 x10^3/uL (0.0-1.1) Eosinophils # (Auto) 0.0 x10^3/uL (0.0-0.7) Basophils # (Auto) 0.0 x10^3/uL (0.0-0.2) Segmented Neutrophils % 84 % (35-66) Band Neutrophils % 4 % (0-9) Lymphocytes % 9 % (24-48) Atypical Lymphocytes % (Manual) 1 % (0-0) Monocytes % 2 % (0-10) Platelet Estimate Adequate (ADEQUATE) Polychromasia Slight Sodium Level 134 mmol/L (136-145) Potassium Level 4.5 mmol/L (3.5-5.1) Chloride Level 95 mmol/L (98-107) Carbon Dioxide Level 31 mmol/L (21-32) Anion Gap 8 (6-14) Blood Urea Nitrogen 14 mg/dL (7-20) Creatinine 1.3 mg/dL (0.6-1.0) Estimated GFR (Cockcroft-Gault) 40.9 Glucose Level 197 mg/dL (70-99) Calcium Level 8.7 mg/dL (8.5-10.1) Vitamin B12 Level 599 pg/mL (247-911) D-Dimer (Joanna) 0.32 ug/mlFEU (0.00-0.50) Medications Active Scripts Medications Dose Route/Sig Max Daily Dose Days Date Category Doxycycline Hyclate 100 Mg Tablet 1 Tab PO BID 05/11/18 Rx [place] 5-325 Tablet (Acetaminophen/Hydrocodone Bitart) 1 Each Tablet 1 Tab PO QID PRN 05/11/18 Rx Levaquin (Levofloxacin) 500 Mg Tablet 500 Mg PO DAILY06 07/11/15 Rx Fludrocortisone Acetate 0.1 Mg Tablet 0.1 Mg PO DAILY 07/11/15 Rx Benzonatate 100 Mg Capsule 100 Mg PO [id number] 07/11/15 Rx Hydrocodone-Apap 10-325 (Hydrocodone Bit/Acetaminophen) 1 Each Tablet 1 Tab PO PRN Q6HRS PRN 07/11/15 Rx NITROGLYCERIN SubLingual (Nitroglycerin) 0.4 Mg Tab.subl 0.4 Mg SL PRN Q5MIN PRN 07/08/15 Reported Promethazine Hcl 25 Mg Tablet 1 Tab PO PRN Q6HRS 07/08/15 Reported Nystatin 15 Gm Cream..g. 1 Deo TP BID PRN 07/08/15 Reported Aspir 81 (Aspirin) 81 Mg Tablet.dr 1 Tab PO DAILY 07/08/15 Reported Lisinopril 5 Mg Tablet 1 Tab PO DAILY 07/08/15 Reported Zocor (Simvastatin) 40 Mg Tablet 40 Mg PO HS 04/26/13 Reported Prilosec (Omeprazole) 20 Mg Capsule.dr 20 Mg PO DAILY 04/26/13 Reported Glyburide 2.5 Mg Tablet 2.5 Mg PO DAILY 04/26/13 Reported Trazodone Hcl 150 Mg Tablet 150 Mg PO QHS 04/26/13 Reported Albuterol Sulfate Hfa Inhaler (Albuterol Sulfate) 8.5 Gm Hfa.aer.ad 8.5 Gm IH BID 04/26/13 Reported Potassium Chloride 10 Meq Tab.er.prt 10 Meq PO 04/26/13 Reported Xanax (Alprazolam) 0.25 Mg Tablet 1 Mg PO QID 04/26/13 Reported Impression . 1. Multiple syncopal episodes, likely related to medication overuse. She is on Xanax 1 mg 4 times a day, also on Lortab 4 times a day./ Fentanyl 50 mics . Chest x-ray is clear; unlikely any thromboembolic disease and CT head also did not reveal any intracranial findings. much better after adjusting pain meds 2. Underlying chronic obstructive pulmonary disease. 3. Chronic dependence on narcotics and benzodiazepines. 4. Underlying morbid obesity and suspected obesity, hypoventilation syndrome. 5. Acute hypoxic respiratory failure secondary to underlying chronic obstructive pulmonary disease and hypoventilation. Plan . 1. Discussed with patient and RN. recommended to minimize benzodiazepines and Narcotics. 2. respiratory status much improved 3. No suspicion of thromboembolic disease. D-Dimer normal 4. Continue with present oxygen. 6. PFTs as an outpatient. 7. Smoking cessation counseling provided. 8. Discussed with RN and patient. ok with ANJELICA Salmeron MD May 11, 2018 13:25
--- NOTE | 2018-05-11 13:52 | PDOC ---
PROGRESS NOTES Assessment Assessment Falls. Respiratory distress. Degenerative C-spine disease. HTN. COPD. Obesity, near morbid type. Smoking. RECOMMENDATIONS/PLAN: Treat medical diseases. Consulted Dr. Hunt. Weight reduction. OT/PT. FU with PCP. HISTORY OF THE PRESENT ILLNESS: 68-y-old female patient with hx of above medical diseases has symptoms of SOB, difficult breathing and was admitted for further evaluation. She complained falls about 2 times a month for several months, so Neurology was requested for consultation. PAST MEDICAL HISTORY: COPD, unknown FEV1; history of narcotic dependence, history of chronic back pain , pancreatitis. PAST SURGICAL HISTORY: Appendectomy, cholecystectomy, hysterectomy. ALLERGIES: CODEINE. SOCIAL HISTORY: Smoker for 30 years, one and half pack per day. MEDICATIONS: Refer to [facility] REVIEW OF SYSTEMS: Constitutional: Obesity. Head: No traumatic brain or head injury. Skin: No edema, or rash. Ear: No infection, tinnitus. Eyes: No vision loss or color blindness. Nose: No bleeding or purulent discharges. Hearing: Mild hearing decrease. Neck: No injury. Breast: No history of cancer, masses,or discharges. Cardiac: HTN. Pulmonary: COPD. GI: No GI ulcer, GI bleeding. Urinary/genital: UTI. Endocrinologic: Obesity. Skeletomuscular: Generalized weakness. Neurological: see HP. Psychiatric: Denies drug use/abuse. Otherwise, not [id number] review of systems. PHYSICAL EXAMINATION: General appearance is in subacute distress. HEENT: Normocephalic and nontraumatic. Eyes, nose, ears, and throat are unremarkable. Neck is supple. No lymphadenopathy. No crepitus. Cardiovascular: S1, S2, regular rate and rhythm. Pulmonary: Clear to auscultation bilaterally. Abdomen: Bowel sounds are positive. Extremities: No rash, lesions, or edema. No restriction of range of motion NEUROLOGICAL EXAMINATION: Alert Oriented to time, place and person. PERRL. EOMI. CN: no focal findings. Muscle tone: within normal. Muscle strength: 4+ DTR: 1 UE, 0-1 at knee due to obesity. Plantar reflex: Flexor response bilaterally Gait: not examined in bed. Sensory exam: no abnormal findings. No cerebellar signs elicited. F-T-N test accurate. Objective Objective Vital Signs Date Time Temp Pulse Resp B/P (MAP) Pulse Ox O2 Delivery O2 Flow Rate FiO2 05/11/18 11:22 90 Room Air 05/11/18 11:04 97.6 55 18 134/61 (85) 2.0 97.6 Intake and Output 05/11/18 06:59 Intake Total 1850 ml Output Total 1000 ml Balance 850 ml Intake Oral 1700 ml IV Total 150 ml Output Urine Total 1000 ml # Voids 4 Vitals Signs Vitals VS - Last 72 Hours, by Label Date Time Temp Pulse Resp B/P (MAP) Pulse Ox O2 Delivery O2 Flow Rate FiO2 05/11/18 11:22 90 Room Air 05/11/18 11:04 97.6 55 18 134/61 (85) 95 Nasal Cannula 2.0 97.6 05/11/18 09:21 Nasal Cannula 2.0 05/11/18 08:01 60 129/68 05/11/18 08:01 Nasal Cannula 2.0 05/11/18 08:00 Nasal Cannula 2.0 05/11/18 07:53 Nasal Cannula 2.0 05/11/18 07:00 97.6 60 20 129/68 (88) 95 Nasal Cannula 2.0 97.6 05/11/18 03:00 97.6 65 20 146/77 (100) 93 Nasal Cannula 97.6 05/10/18 23:37 91 Nasal Cannula 2.0 05/10/18 23:00 97.8 66 20 104/62 (76) 91 Nasal Cannula 2.0 97.8 05/10/18 20:04 Nasal Cannula 2.0 05/10/18 20:00 Nasal Cannula 2.0 05/10/18 19:00 98.2 63 20 111/68 (82) 94 Nasal Cannula 2.0 98.2 05/10/18 16:41 Nasal Cannula 2.0 05/10/18 15:37 Nasal Cannula 2.0 05/10/18 15:00 97.4 63 20 102/46 (64) 94 Nasal Cannula 2.0 97.4 05/10/18 11:43 Nasal Cannula 2.0 05/10/18 11:00 97.9 79 20 150/60 (90) 91 Nasal Cannula 2.0 97.9 05/10/18 08:20 93 Nasal Cannula 2.0 05/10/18 08:12 77 155/61 05/10/18 08:11 Nasal Cannula 2.0 05/10/18 08:00 Nasal Cannula 2.0 05/10/18 07:00 97.9 77 20 155/61 (92) 91 Nasal Cannula 2.0 97.9 Laboratory Laboratory Microbiology 05/09/18 Blood Culture - Preliminary, Resulted NO GROWTH AFTER 2 DAYS Medication Medications Current Medications Albuterol/ Ipratropium (Duoneb) 3 ml RTQID NEB Last administered on 05/11/18at 11:22; Start 05/10/18 at 20:00 Alprazolam (Xanax) 0.25 mg QID PO Last administered on 05/11/18at 12:43; Start 05/10/18 at 17:00 Bupivacaine HCl (Sensorcaine-Mpf 0.25%) 10 ml 1X ONCE IJ ; Start 05/11/18 at 11 :00; Stop 05/11/18 at 11:03; Status DC Methylprednisolone Acetate (DEPO-Medrol 40MG VIAL) 40 mg 1X ONCE IM ; Start at 11:00; Stop 05/11/18 at 11:03; Status DC Comment Review of Relevant I have reviewed the following items suki (where applicable) has been applied. MAHENDRA KUHN MD May 11, 2018 13:52
--- NOTE | 2018-05-11 14:08 | PDOC3 ---
Discharge Summary Visit Information Date of Admission: May 09, 2018 Date of Discharge: May 11, 2018 Admitting Diagnosis: hypoxia, dyspnea Final Diagnosis acute hypoxic and hypercapnic resp failure with bronchitis sepsis with bronchitis COPD exacerbation A obesity, BMI 39.6 tobaccoism, weakness and falls Anxiety, D/o NOS Asthma, Hx HX CHF, , chronic diastolic Hypertension, chronic back pain Problems Medical Problems: (1) COPD exacerbation Status: Acute (2) Syncope Status: Acute Brief Hospital Course Allergies Allergies Coded Allergies Type Severity Reaction Last Updated Verified codeine Allergy Intermediate hives 07/10/15 Yes Vital Signs Vital Signs Date Time Temp Pulse Resp B/P (MAP) Pulse Ox O2 Delivery O2 Flow Rate FiO2 05/11/18 14:02 Nasal Cannula 2.0 05/11/18 11:22 90 05/11/18 11:04 97.6 55 18 134/61 (85) 97.6 Lab Results Laboratory Tests Test 05/09/18 20:58 05/10/18 07:17 05/10/18 12:05 O2 Saturation 93 % (92-99) Arterial Blood pH 7.40 (7.35-7.45) Arterial Blood pCO2 at Patient Temp 49 mmHg (35-46) Arterial Blood pO2 at Patient Temp 69 mmHg (65-108) Arterial Blood HCO3 30 mmol/L (21-28) Arterial Blood Base Excess 4 mmol/L (-3-3) FiO2 28 White Blood Count 10.9 x10^3/uL (4.0-11.0) Red Blood Count 5.47 x10^6/uL (3.50-5.40) Hemoglobin 15.2 g/dL (12.0-15.5) Hematocrit 47.6 % (36.0-47.0) Mean Corpuscular Volume 87 fL (79-100) Mean Corpuscular Hemoglobin 28 pg (25-35) Mean Corpuscular Hemoglobin Concent 32 g/dL (31-37) Red Cell Distribution Width 14.2 % (11.5-14.5) Platelet Count 231 x10^3/uL (140-400) Neutrophils (%) (Auto) 88 % (31-73) Lymphocytes (%) (Auto) 10 % (24-48) Monocytes (%) (Auto) 2 % (0-9) Eosinophils (%) (Auto) 0 % (0-3) Basophils (%) (Auto) 0 % (0-3) Neutrophils # (Auto) 9.6 x10^3uL (1.8-7.7) Lymphocytes # (Auto) 1.1 x10^3/uL (1.0-4.8) Monocytes # (Auto) 0.3 x10^3/uL (0.0-1.1) Eosinophils # (Auto) 0.0 x10^3/uL (0.0-0.7) Basophils # (Auto) 0.0 x10^3/uL (0.0-0.2) Segmented Neutrophils % 84 % (35-66) Band Neutrophils % 4 % (0-9) Lymphocytes % 9 % (24-48) Atypical Lymphocytes % (Manual) 1 % (0-0) Monocytes % 2 % (0-10) Platelet Estimate Adequate (ADEQUATE) Polychromasia Slight Sodium Level 134 mmol/L (136-145) Potassium Level 4.5 mmol/L (3.5-5.1) Chloride Level 95 mmol/L (98-107) Carbon Dioxide Level 31 mmol/L (21-32) Anion Gap 8 (6-14) Blood Urea Nitrogen 14 mg/dL (7-20) Creatinine 1.3 mg/dL (0.6-1.0) Estimated GFR (Cockcroft-Gault) 40.9 Glucose Level 197 mg/dL (70-99) Calcium Level 8.7 mg/dL (8.5-10.1) Vitamin B12 Level 599 pg/mL (247-911) D-Dimer (Joanna) 0.32 ug/mlFEU (0.00-0.50) Brief Hospital Course Ms. Hendrix is a 68 old [sex] who presented with [ ] admit with COPD, cough dyspnea, also polypharmacy, taking pain and anxiety meds. these meds have been tapered, 1/2 dose of prior, I educated at length, I asked her to have home health come check her symptoms and her meds and she declined. refill until primary care visit next tuesday pt reproted that she felt at her baseline at DC Discharge Information Condition at Discharge: Improved Follow Up: Weeks Disposition/Orders: D/C to Home w/ HH Scheduled Albuterol Sulfate (Albuterol Sulfate Hfa Inhaler) 8.5 Gm Hfa.aer.ad, 8.5 GM IH BID, (Reported) Entered as Reported by: Korin Cooper on 04/26/132050 Alprazolam (Xanax) 0.25 Mg Tablet, 1 MG PO QID, (Reported) Entered as Reported by: YNES JACK on 04/26/131534 Last Action: Continued on 05/09/182038 by HARRIS MADISON MD Aspirin (Aspir 81) 81 Mg Tablet.dr, 1 TAB PO DAILY, #30 Ref 5 (Reported) Entered as Reported by: BRAN GAN on 07/08/151538 Last Action: Continued on 05/09/182038 by HARRIS MADISON MD Benzonatate (Benzonatate) 100 Mg Capsule, 100 MG PO [id number], #20 Prescribed by: LORRAINE ROUSE MD on 07/11/151147 Last Action: Converted on 05/09/182038 by HARRIS MADISON MD Doxycycline Hyclate (Doxycycline Hyclate) 100 Mg Tablet, 1 TAB PO BID for bronchitis, #14 Prescribed by: GONZALO VICENTE on 05/11/18 1307 Fludrocortisone Acetate (Fludrocortisone Acetate) 0.1 Mg Tablet, 0.1 MG PO DAILY , #30 Prescribed by: LORRAINE ROUSE MD on 07/11/151147 Last Action: Continued on 05/09/182038 by HARRIS MADISON MD Glyburide (Glyburide) 2.5 Mg Tablet, 2.5 MG PO DAILY, (Reported) Entered as Reported by: Korin Cooper on 04/26/132053 Last Action: Converted on 05/09/182038 by HARRIS MADISON MD Levofloxacin (Levaquin) 500 Mg Tablet, 500 MG PO DAILY06, #5 Prescribed by: LORRAINE ROUSE MD on 07/11/151147 Last Action: HELD on 05/09/182038 by HARRIS MADISON MD Lisinopril (Lisinopril) 5 Mg Tablet, 1 TAB PO DAILY, #30 Ref 5 (Reported) Entered as Reported by: BRAN GAN on 07/08/151537 Last Action: Converted on 05/09/182038 by HARRIS MADISON MD Omeprazole (Prilosec) 20 Mg Capsule.dr, 20 MG PO DAILY for GERD, (Reported) Entered as Reported by: Korin Cooper on 04/26/132053 Last Action: Edited on 05/09/182099 by NICHO VARGAS Promethazine Hcl (Promethazine Hcl) 25 Mg Tablet, 1 TAB PO PRN Q6HRS, #20 ( Reported) Entered as Reported by: BRAN GAN on 07/08/154 Last Action: Converted on 05/09/182038 by HARRIS MADISON MD Simvastatin (Zocor) 40 Mg Tablet, 40 MG PO HS, (Reported) Entered as Reported by: Korin Cooper on 04/26/132054 Last Action: Converted on 05/09/182038 by HARRIS MADISON MD Trazodone Hcl (Trazodone Hcl) 150 Mg Tablet, 150 MG PO QHS, (Reported) Entered as Reported by: Korin Cooper on 04/26/132052 Last Action: HELD on 05/09/182038 by HARRIS MADISON MD Scheduled PRN Hydrocodone Bit/Acetaminophen (Hydrocodone-Apap 10-325 ) 1 Each Tablet, 1 TAB PO PRN Q6HRS PRN for PAIN, #10 Ref 0 Prescribed by: LORRAINE ROUSE MD on 07/11/15 1148 Last Action: Continued on 05/09/182038 by HARRIS MADISON MD Hydrocodone/Apap 5-325 ([place] 5-325 Tablet) 1 Each Tablet, 1 TAB PO QID PRN for PAIN, #24 Prescribed by: GONZALO VICENTE on 05/11/18 1307 Nitroglycerin (NITROGLYCERIN SubLingual) 0.4 Mg Tab.subl, 0.4 MG SL PRN Q5MIN PRN for CHEST PAIN, (Reported) Entered as Reported by: SAMY MARTINEZ on 07/08/152208 Last Action: Continued on 05/09/182038 by HARRIS MADISON MD Nystatin (Nystatin) 15 Gm Cream..g., 1 YONAS TP BID PRN for yeast infection, #30 ( Reported) Entered as Reported by: BRAN GAN on 07/08/15 154 Last Action: Converted on 05/09/182038 by HARRIS MADISON MD Miscellaneous Medications Potassium Chloride (Potassium Chloride) 10 Meq Tab.er.prt, 10 MEQ PO, (Reported) Entered as Reported by: YNES JACK on 04/26/131534 Last Action: Continued on 05/09/182038 by HARRIS MADISON MD Patient Instructions Patient Instructions > 30 min 2 visits face to face I ordered home health, filled paperwork, discussed with patient and she declined GONZALO VICENTE MD May 11, 2018 14:08
--- NOTE | 2018-05-11 14:50 | NUR ---
SW consulted for home health. SW met with pt, pt does not want home health, reporting her sister comes by during the day time. Pt denied any needs from SW. Pt discharging home with self care today. RN notified.
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
== END 2018-05-11 15:37 | disposition home or self-care (01) | DRG 871 ==
LOC: ER 11:22 → 5 SOUTH 14:18
PROVIDERS: ADMIT Family Medicine; ATTEND Family Medicine
DX: A41.9 Sepsis, unspecified organism (principal); J96.02 Acute respiratory failure with hypercapnia; J96.01 Acute respiratory failure with hypoxia; J44.1 Chronic obstructive pulmonary disease with (acute) exacerbation; I50.32 Chronic diastolic (congestive) heart failure; E66.01 Morbid (severe) obesity due to excess calories; Z99.81 Dependence on supplemental oxygen; Z68.39 Body mass index [BMI] 39.0-39.9, adult; F17.210 Nicotine dependence, cigarettes, uncomplicated; F41.9 Anxiety disorder, unspecified; G89.29 Other chronic pain; I11.0 Hypertensive heart disease with heart failure; I73.9 Peripheral vascular disease, unspecified; M17.0 Bilateral primary osteoarthritis of knee; M47.816 Spondylosis without myelopathy or radiculopathy, lumbar region; M50.30 Other cervical disc degeneration, unspecified cervical region; W18.39XA Other fall on same level, initial encounter; Z82.49 Family history of ischemic heart disease and other diseases of the circulatory system; Z79.899 Other long term (current) drug therapy; Z82.5 Family history of asthma and other chronic lower respiratory diseases; Z83.3 Family history of diabetes mellitus; Z88.5 Allergy status to narcotic agent; Z90.49 Acquired absence of other specified parts of digestive tract; Z90.710 Acquired absence of both cervix and uterus; Z88.8 Allergy status to other drugs, medicaments and biological substances; Y93.89 Activity, other specified; Y92.89 Other specified places as the place of occurrence of the external cause; Y99.8 Other external cause status
CPT/HCPCS: 36415; 36600; 70450; 71045; 72125; 80048; 80053; 80307; 81001; 82553; 82607; 82805; 83735; 83880; 84443; 84484; 85007; 85025; 85379; 85610; 87040; 87086; 87186; 87804; 93005; 94640; 94760; 95816; 96374; 96375; 99406; J1650; J2405; J2543; J2920; J2930; J3010; J3490; J7620; Q0169; 99285-25

== ENCOUNTER 2018-07-16 11:54 | Emergency (ER) | payer MEDICARE, BC ==
[~2018-07-16] VITALS: Ht 152.4 cm; Wt 95.3 kg
[~2018-07-16 11:54] MED LIST changes: +DOXY100T PO; +HYDR-3164 PO
[2018-07-16] MEDS ORDERED: IV NORMAL SALINE 1000ML BAG 1,000 ML IV SCH (12:35)
[2018-07-16] MEDS ORDERED: ONDANSETRON PF 4 MG/2 ML VIAL. IV ONE (12:45)
[2018-07-16] MEDS ORDERED: fentaNYL PF VIAL 100 MCG/2 ML VIAL IV ONE (12:45)
[2018-07-16 12:49] LABS: BASO # 0.1 x10^3/uL (0.0-0.2); BASO % 0 % (0-3); EOS % 0 % (0-3); HEMATOCRIT 49.4 % (36.0-47.0); HEMOGLOBIN 16.2 g/dL (12.0-15.5); LYMPH # 1.8 x10^3/uL (1.0-4.8); LYMPH % 12 % (24-48); MEAN CORPUSCULAR HEMOGLOBIN 28 pg (25-35); MEAN CORPUSCULAR HGB CONC 33 g/dL (31-37); MEAN CORPUSCULAR VOLUME 85 fL (79-100); MONO # 0.9 x10^3/uL (0.0-1.1); MONO % 6 % (0-9); NEUT # 12.5 x10^3uL (1.8-7.7); NEUT % 81 % (31-73); PLATELET COUNT 232 x10^3/uL (140-400); RED BLOOD COUNT 5.84 x10^6/uL (3.50-5.40); RED CELL DISTRIBUTION WIDTH 14.9 % (11.5-14.5); WHITE BLOOD COUNT 15.4 x10^3/uL (4.0-11.0)
[2018-07-16 13:01] LABS: PROTHROMBIN TIME PATIENT 12.5 SEC (11.7-14.0)
[2018-07-16 13:06] LABS: GFR 55.3
[2018-07-16 13:10] LABS: ALBUMIN 3.5 g/dL (3.4-5.0); ALBUMIN/GLOBULIN RATIO 0.9 (1.0-1.7); TOTAL BILIRUBIN 0.9 mg/dL (0.2-1.0); TOTAL PROTEIN 7.5 g/dL (6.4-8.2)
[2018-07-16] MEDS ORDERED: MORPHINE SULFATE 4 MG/ML VIAL. IV ONE (13:30)
[2018-07-16] MEDS ORDERED: IOHEXOL 240 MG/ML 50ML VIAL. PO ONE (14:00)
[2018-07-16] MEDS ORDERED: CONTRAST GIVEN. MC PRN (14:00)
[2018-07-16] MEDS ORDERED: IOHEXOL 300 MG/ML 100ML VIAL. IV ONE (14:00)
--- NOTE | 2018-07-16 14:06 | RAD ---
Examination: CT of the abdomen pelvis with oral and IV contrast HISTORY: History of abdominal pain COMPARISON: None available Technique: Axial CT images of the abdomen is performed with oral and IV contrast. Coronal and sagittal reformats are performed. Exposure: One or more of the following individualized dose reduction techniques were utilized for this examination: 1. Automated exposure control 2. Adjustment of the mA and/or kV according to patient size 3. Use of iterative reconstruction technique FINDINGS: Minimal atelectasis left lingula. The bibasilar lungs are clear. No evidence of free air identified in the abdomen. The visualized liver, spleen, adrenals grossly appears unremarkable. Cholecystectomy clips identified. The stomach is mildly distended. The visualized pancreas grossly appears unremarkable. The small bowel is nondilated. Feces and gas noted in the colon. The bilateral kidneys enhance symmetrically. Cystic structure identified in the left kidney measuring 2 cm likely cyst. Mild degenerative changes lumbar spine. IMPRESSION: No acute intra-abdominal findings. Electronically signed by: Al James MD (07/16/2018 2:03 PM) [facility]
[2018-07-16] MEDS ORDERED: KETOROLAC 30 MG/ML VIAL. IV ONE (14:15)
[2018-07-16 15:11] VITALS: BP 142/66
[2018-07-16] MEDS ORDERED: POTASSIUM CHLORIDE 20 MEQ TABLET.ER. PO ONE (15:15)
[2018-07-16] MEDS ORDERED: ONDA4TAB7 PO (15:31)
--- NOTE | 2018-07-16 15:31 | PHYS DOC ---
Past Medical History Past Medical History: Anxiety, Diabetes-Type II, Hypertension Additional Past Medical Histor: PANCREATIC CANCER 2 YEARS AGO. CHEMOTHERAPY. Past Surgical History: Appendectomy, Cholecystectomy Additional Past Surgical Histo: lumpectomy right side, LEG AND ARM Alcohol Use: None Drug Use: None Adult General Chief Complaint Chief Complaint: MULTIPLE COMPLAINTS HPI HPI Patient is a 68 year old female who presents with complaining of abdominal pain. She complaining of constant upper abdominal pain for the last 3 weeks as a aching and sharp pain without radiation rated her pain 10/10. Patient states she takes hydrocodone at home without improvement of her pain. Patient complaining of episodes of nausea and vomiting since yesterday, urinary symptoms, fever and chills, chest pain, shortness of breath, sick contact. Patient had history of pancreatic cancer several years ago without taking chemotherapy currently. Review of Systems Review of Systems Constitutional: Denies fever or chills [] Eyes: Denies change in visual acuity, redness, or eye pain [] HENT: Denies nasal congestion or sore throat [] Respiratory: Denies cough or shortness of breath [] Cardiovascular: No additional information not addressed in HPI [] GI: Reports abdominal pain, nausea, vomiting, denies bloody stools or diarrhea [] : Denies dysuria or hematuria [] Musculoskeletal: Denies back pain or joint pain [] Integument: Denies rash or skin lesions [] Neurologic: Denies headache, focal weakness or sensory changes [] Endocrine: Denies polyuria or polydipsia [] All other systems were reviewed and found to be within normal limits, except as documented in this note. Current Medications Current Medications Current Medications Medications (Trade) Dose Ordered Sig/Ana Start Time Stop Time Status Last Admin Dose Admin Fentanyl Citrate (Fentanyl 2ml Vial) 50 mcg 1X ONCE 07/16/18 12:45 07/16/18 12:46 DC 07/16/18 12:45 50 MCG Info (CONTRAST GIVEN -- Rx MONITORING) 1 each PRN DAILY PRN 07/16/18 14:00 07/18/18 13:59 Iohexol (Omnipaque 240 Mg/ml) 30 ml 1X ONCE 07/16/18 14:00 07/16/18 14:01 DC 07/16/18 13:54 30 ML Iohexol (Omnipaque 300 Mg/ml) 60 ml 1X ONCE 07/16/18 14:00 07/16/18 14:01 DC 07/16/18 13:54 60 ML Ketorolac Tromethamine (Toradol 30mg Vial) 30 mg 1X ONCE 07/16/18 14:15 07/16/18 14:16 DC 07/16/18 14:30 30 MG Morphine Sulfate (Morphine Sulfate) 4 mg 1X ONCE 07/16/18 13:30 07/16/18 13:31 DC 07/16/18 13:27 4 MG Ondansetron HCl (Zofran) 4 mg 1X ONCE 07/16/18 12:45 07/16/18 12:46 DC 07/16/18 12:45 4 MG Potassium Chloride (Klor-Con) 40 meq 1X ONCE 07/16/18 15:15 07/16/18 15:16 DC 07/16/18 14:45 40 MEQ Sodium Chloride 1,000 ml @ 1,000 mls/hr Q1H 07/16/18 12:35 07/16/18 13:34 DC 07/16/18 12:41 1,000 MLS/HR Allergies Allergies Allergies Coded Allergies Type Severity Reaction Last Updated Verified codeine Allergy Intermediate hives 07/10/15 Yes Physical Exam Physical Exam Constitutional: Well nourished, no acute distress, non-toxic appearance, morbidly obese. [] HENT: Normocephalic, atraumatic, oropharynx moist. Eyes: PERRLA, EOMI, conjunctiva normal, no discharge. [] Neck: Normal range of motion, no tenderness, supple, no stridor. [] Cardiovascular:Heart rate regular rhythm, no murmur [] Lungs & Thorax: Bilateral breath sounds clear to auscultation [] Abdomen: Bowel sounds normal, soft, voluntary the guarding, no tenderness, no masses, no pulsatile masses. [] Skin: Warm, dry, no erythema, no rash. [] Back: No tenderness, no CVA tenderness. [] Extremities: No tenderness, no cyanosis, no clubbing, ROM intact, no edema. [] Neurologic: Alert and oriented X 3, normal motor function, normal sensory fun ction, no focal deficits noted. [] Psychologic: Affect anxious, judgement normal, mood normal. [] Current Patient Data Vital Signs Vital Signs Date Time Temp Pulse Resp B/P (MAP) Pulse Ox O2 Delivery O2 Flow Rate FiO2 07/16/18 15:11 66 22 142/66 (91) 95 Room Air 07/16/18 12:04 97.7 97.7 Lab Values Laboratory Tests Test 07/16/18 12:12 07/16/18 12:20 Glucose (Fingerstick) 160 mg/dL (70-99) H White Blood Count 15.4 x10^3/uL (4.0-11.0) H Red Blood Count 5.84 x10^6/uL (3.50-5.40) H Hemoglobin 16.2 g/dL (12.0-15.5) H Hematocrit 49.4 % (36.0-47.0) H Mean Corpuscular Volume 85 fL (79-100) Mean Corpuscular Hemoglobin 28 pg (25-35) Mean Corpuscular Hemoglobin Concent 33 g/dL (31-37) Red Cell Distribution Width 14.9 % (11.5-14.5) H Platelet Count 232 x10^3/uL (140-400) Neutrophils (%) (Auto) 81 % (31-73) H Lymphocytes (%) (Auto) 12 % (24-48) L Monocytes (%) (Auto) 6 % (0-9) Eosinophils (%) (Auto) 0 % (0-3) Basophils (%) (Auto) 0 % (0-3) Neutrophils # (Auto) 12.5 x10^3uL (1.8-7.7) H Lymphocytes # (Auto) 1.8 x10^3/uL (1.0-4.8) Monocytes # (Auto) 0.9 x10^3/uL (0.0-1.1) Eosinophils # (Auto) 0.0 x10^3/uL (0.0-0.7) Basophils # (Auto) 0.1 x10^3/uL (0.0-0.2) Prothrombin Time 12.5 SEC (11.7-14.0) Prothrombin Time INR 1.0 (0.8-1.1) Sodium Level 135 mmol/L (136-145) L Potassium Level 3.0 mmol/L (3.5-5.1) L Chloride Level 96 mmol/L (98-107) L Carbon Dioxide Level 27 mmol/L (21-32) Anion Gap 12 (6-14) Blood Urea Nitrogen 14 mg/dL (7-20) Creatinine 1.0 mg/dL (0.6-1.0) Estimated GFR (Cockcroft-Gault) 55.3 BUN/Creatinine Ratio 14 (6-20) Glucose Level 160 mg/dL (70-99) H Calcium Level 9.0 mg/dL (8.5-10.1) Total Bilirubin 0.9 mg/dL (0.2-1.0) Aspartate Amino Transferase (AST) 28 U/L (15-37) Alanine Aminotransferase (ALT) 26 U/L (14-59) Alkaline Phosphatase 80 U/L (46-116) Creatine Kinase 326 U/L (26-192) H Troponin I Quantitative 0.025 ng/mL (0.000-0.055) TR-Szd-J-Type Natriuretic Peptide 675 pg/mL (0-124) H Total Protein 7.5 g/dL (6.4-8.2) Albumin 3.5 g/dL (3.4-5.0) Albumin/Globulin Ratio 0.9 (1.0-1.7) L Lipase 116 U/L (73-393) Laboratory Tests 07/16/18 12:20 Laboratory Tests 07/16/18 12:20 EKG EKG [] Radiology/Procedures Radiology/Procedures [facility] [address] [place] [address] IMAGING REPORT Signed PATIENT: ASHLEY REYES ACCOUNT: [id number] : 1950 LOCATION: ER AGE: 68 SEX: F EXAM STATUS: REG ER ORD. PHYSICIAN: LIZANDRO BANUELOS MD REASON: abdominal pain PROCEDURE: CT ABD PELV W/ORAL&IV CONTRAST Examination: CT of the abdomen pelvis with oral and IV contrast HISTORY: History of abdominal pain COMPARISON: None available Technique: Axial CT images of the abdomen is performed with oral and IV contrast. Coronal and sagittal reformats are performed. Exposure: One or more of the following individualized dose reduction techniques were utilized for this examination: 1. Automated exposure control 2. Adjustment of the mA and/or kV according to patient size 3. Use of iterative reconstruction technique FINDINGS: Minimal atelectasis left lingula. The bibasilar lungs are clear. No evidence of free air identified in the abdomen. The visualized liver, spleen, adrenals grossly appears unremarkable. Cholecystectomy clips identified. The stomach is mildly distended. The visualized pancreas grossly appears unremarkable. The small bowel is nondilated. Feces and gas noted in the colon. The bilateral kidneys enhance symmetrically. Cystic structure identified in the left kidney measuring 2 cm likely cyst. Mild degenerative changes lumbar spine. IMPRESSION: No acute intra-abdominal findings. Electronically signed by: Al James MD (07/16/2018 2:03 PM) [facility] DICTATED and SIGNED BY: AL JAMES MD DATE: 07/16/18 6087 Course & Med Decision Making Course & Med Decision Making Pertinent Labs and Imaging studies reviewed. (See chart for details) Evaluation of patient in ER showed 68-year-old female patient with history of pancreatic cancer on remission and complaining of abdominal pain for 3 weeks and nausea and vomiting since yesterday. Patient was very anxious in ER and asking for pain medication frequently. Patient treated with IV fluid and Zofran plus fentanyl, morphine, Toradol and finally felt better. Patient had unremarkable CT of abdomen and pelvis and labs did not show acute finding except for potassium of 3.0. She had leukocytosis of 15.7 without fever, tachycardia. Patient ambulated without problem and tolerated oral intake. Patient was advised to follow up with her primary care physician regarding epigastric pain and more evaluation. Dragon Disclaimer Dragon Disclaimer This electronic medical record was generated, in whole or in part, using a voice recognition dictation system. Departure Departure Impression: Primary Impression: Abdominal pain Additional Impressions: Nausea and vomiting Anxiety Hypokalemia Tobacco abuse Tobacco abuse counseling Disposition: HOME, SELF-CARE (at 1529) Condition: IMPROVED Referrals: IVETH GALLEGOS (PCP) Patient Instructions: Abdominal Pain, Hypokalemia, Nausea and Vomiting Additional Instructions: Drink plenty of liquids Follow-up with your primary care physician in 3-5 days Return to ER if not getting better Continue home pain medication Scripts Ondansetron Hcl (ZOFRAN) 4 Mg Tablet 1 TAB PO PRN Q6-8HRS for nausea, #12 TAB Prov: LIZANDRO BANUELOS MD 07/16/18 Critical Care Time Critical care time was 60 minutes exclusive of procedures. Problem Qualifiers Primary Impression: Abdominal pain Abdominal location: epigastric Qualified Codes: R10.13 - Epigastric pain Additional Impressions: Nausea and vomiting Vomiting type: unspecified Vomiting Intractability: unspecified Qualified Codes: R11.2 - Nausea with vomiting, unspecified LIZANDRO BANUELOS MD July 16, 2018 15:31
== END 2018-07-16 15:45 | disposition home or self-care (01) ==
LOC: ER 11:54
DX: R10.13 Epigastric pain (principal); R11.2 Nausea with vomiting, unspecified; F41.9 Anxiety disorder, unspecified; E87.6 Hypokalemia; Z72.0 Tobacco use; Z71.6 Tobacco abuse counseling; I10 Essential (primary) hypertension; E11.9 Type 2 diabetes mellitus without complications; Z90.89 Acquired absence of other organs; Z90.49 Acquired absence of other specified parts of digestive tract; Z88.5 Allergy status to narcotic agent
CPT/HCPCS: 36415; 74177; 80053; 82550; 82962; 83690; 83880; 84484; 85025; 85610; 96361; 96374; 96375; 99285; J1885; J2270; J2405; J3010; J7030; Q9966; Q9967